=== PATIENT | male | born 1955 | race Caucasian/White ===

== ENCOUNTER 2017-01-26 17:44 | Emergency (ER) | payer MEDICARE ==
[2013-11-30 13:24] VITALS: BMI 32.5
[~2017-01-26 17:44] MED LIST: CYMBALTA60 MG PO; FLUTICASONE PRO16 GM NS; GLIPIZIDE10 MG PO; HUMALOG 30100 UNITS/ SC; NAPROSYN500 MG PO; NORCO 10/325 TA1 TA1 PO; PROTONIX40 MG PO; REVLIMID25 MG PO; ULTRAM50 MG PO; VENTOLIN HFA18 GM INH; XANAX0.5 MG PO; ZYLOPRIM100 MG PO
[2017-01-26 18:59] LABS: BASOPHILS 0.1 % (0.0-2.0); EOSINOPHILS 0.1 % (0-7); HEMATOCRIT 48.2 % (42.0-54.0); HEMOGLOBIN 17.2 g/dL (13.5-17.5); IMMATURE GRANULOCYTES 0.2 % (0-5); LYMPHOCYTES 7.1 % (15-50); MCH 33.7 pg (26.0-34.0); MCHC 35.7 g/dL (31.0-37.0); MCV 94.5 fL (80.0-100.0); MEAN PLATELET VOLUME 11.3 fL (7.4-10.4); MONOCYTES 15.8 % (2-11); NEUTROPHILS 76.7 % (40-80); RDW 13.8 % (11.5-14.5); WBC 10.2 10x3/uL (4.8-10.8)
[2017-01-26 19:03] LABS: PLATELET COUNT 167 10x3/uL (130-400)
[2017-01-26 19:17] LABS: ANION GAP 16.7 mmol/L (8-16); BILIRUBIN - TOTAL 0.38 mg/dL (0.2-1.3); CALCIUM 8.4 mg/dL (8.5-10.1); CARBON DIOXIDE 23.2 mmol/L (21.0-32.0); CREATININE - SERUM 2.6 mg/dL (0.6-1.3); POTASSIUM - SERUM 3.9 mmol/L (3.5-5.1); PROTEIN - SERUM 7.3 g/dL (6.4-8.2)
== END 2017-01-26 20:16 | disposition home or self-care (01) ==
LOC: D.ER 17:44
PROVIDERS: Emergency Medicine
DX: R11.10 Vomiting, unspecified (principal); E86.0 Dehydration; I12.9 Hypertensive chronic kidney disease with stage 1 through stage 4 chronic kidney disease, or unspecified chronic kidney disease; N18.9 Chronic kidney disease, unspecified; E11.65 Type 2 diabetes mellitus with hyperglycemia; Z79.4 Long term (current) use of insulin; C90.00 Multiple myeloma not having achieved remission

== ENCOUNTER 2018-08-23 11:08 | Observation (INO) | payer MEDICARE ==
[~2018-08-23] VITALS: Ht 185.4 cm; Wt 111.1 kg
--- NOTE | ~2018-08-23 | EC ---
PATIENT:ARLIN CUELLAR DATE OF SERVICE: 08/23/18 SEX: M MEDICAL RECORD: [id number] DATE OF : [birth year] LOCATION:D.M2 D.212 AGE OF PATIENT: 63 ADMISSION DATE: 08/23/18 REFERRING PHYSICIAN: INTERPRETING PHYSICIAN: CECILIA DEJESUS MD ECHOCARDIOGRAM REPORT ECHO CHARGES 4 ECHO COMPLETE Date: 08/24/18 CLINICAL DIAGNOSIS: DYSPNEA/CP ECHOCARDIOGRAPHIC MEASUREMENTS (adult normal given) AC root (d.<3.7cm) 3.5 cm LV Septum d (<1.2 cm> 1.1 cm Valve Excursion 2.2 cm LV Septum (systole) 1.7 cm Left Atria (s.<4.0cm> 3.9 cm LVPW d(<1.2cm) 1.2 cm RV (d.<2.3cm) 2.8 cm LVPW (sytole) 1.8 cm LV diastole(<5.6CM) 6.1 cm MV E-F(>70mm/sec) cm LV systole 3.7 cm LVOT Diameter 2.1 cm MV exc.(>10mm) cm Est.ejection fraction (50-75%) % DOPPLER: LVIT cm/sec A 94.0 cm/sec E 124 cm/sec LA cm/sec RVSP 33.0 mmHg LVOT 137 cm/sec AOP1/2T m/s Asc. Ao 196 cm/sec RVOT 82.0 cm/sec RA cm/sec PA 94.0 cm/sec AV Gradient Peak 15.4 mmHg AV Mean 5.6 mmHg AV Area 2.7 cm MV Gradient Peak 7.0 mmHg MV Mean 2.0 mmHg MV Area cm COMMENTS: Pattern Setter: 1 ROSA JONESOE Electrical Maintenance Worker: 3 Dr. Li TAPE# PACS Pericardial Effusion N DATE OF SERVICE: Adequate 2D echo, color flow, spectral Doppler and M-mode. No LVH. LV internal dimension is normal. Wall motion is normal. EF is greater than or equal to 55%. Aortic valve is tricuspid. No septation. Left atrium is normal at 3.7 cm. Mitral valve shows no prolapse. Trace MR. Right-sided chamber is grossly normal. Trace TR. TRANSINT:[id number] Voice Confirmation ID: [id number] DOCUMENT ID: [id number] ECHOCARDIOGRAM REPORT [id number] WHITE,ARLIN CITLALLI CECILIA DEJESUS MD at 2229 CC: [id number] DICTATION DATE: 08/24/18 1405 MANAGER OFFICE SERVICES: 08/24/18 1528 DIS IN 08/24/18 [id number] [place] [address]
[2018-08-23 12:13] LABS: BASOPHILS 0.2 % (0-2); EOSINOPHILS 1.9 % (0-7); HEMATOCRIT 39.8 % (42.0-54.0); HEMOGLOBIN 13.3 g/dL (13.5-17.5); IMMATURE GRANULOCYTES 0.6 % (0-5); LYMPHOCYTES 9.8 % (15-50); MCH 33.3 pg (26.0-34.0); MCHC 33.4 g/dL (31.0-37.0); MCV 99.5 fL (80.0-100.0); MEAN PLATELET VOLUME 11.3 fL (7.4-10.4); MONOCYTES 9.1 % (2-11); NEUTROPHILS 78.4 % (40-80); PLATELET COUNT 157 10x3/uL (130-400); RDW 14.4 % (11.5-14.5); WBC 4.7 10x3/uL (4.8-10.8)
[2018-08-23 12:26] LABS: APTT 22.2 SECONDS (22.8-39.4); INR 0.92 (0.85-1.17)
[2018-08-23 12:31] LABS: ALBUMIN 3.2 g/dL (3.4-5.0); ALKALINE PHOSPHATASE 66 U/L (46-116); ALT (SGPT) 24 U/L (10-68); CALC OSMOLALITY 282 mosm/kg (275-300); CALCIUM 8.2 mg/dL (8.5-10.1); CARBON DIOXIDE 27.5 mmol/L (21.0-32.0); CHLORIDE - SERUM 105 mmol/L (98-107); CREATININE - SERUM 1.5 mg/dL (0.6-1.3); POTASSIUM - SERUM 4.5 mmol/L (3.5-5.1); SODIUM 138 mmol/L (136-145); UREA NITROGEN 24 mg/dL (7-18); eGFR NON AFRICAN AMERICAN 51 mL/min (90-120)
[2018-08-23 12:33] LABS: GLUCOSE 159 mg/dL (74-106)
[2018-08-23 12:43] LABS: CREATINE KINASE 21 UL (21-232)
[2018-08-23 12:50] LABS: D-DIMER-QUANTITATIVE 0.43 ug/mLFEU (0.20-0.54)
[2018-08-23 14:22] LABS: TROPONIN-I 0.028 ng/mL (0.000-0.060)
[2018-08-23 14:42] LABS: CKMB 0.6 U/L (0.0-3.6); CREATINE KINASE 18 UL (21-232)
[2018-08-23 17:29] LABS: CHOL - HDL RATIO 3.2 ratio (2.3-4.9); LDL-HDL RATIO 1.8 ratio (1.5-3.5)
[2018-08-23 20:00] VITALS: BP 162/88
[2018-08-23 21:58] LABS: CKMB 0.5 U/L (0.0-3.6); CREATINE KINASE 20 UL (21-232); TROPONIN-I 0.024 ng/mL (0.000-0.060)
[2018-08-24] VITALS: BP 139/77
[2018-08-24] MEDS ORDERED: BAYER CHEWABLE81 MG PO (01:00)
[2018-08-24] MEDS ORDERED: LISINOPRIL10 MG PO (01:00)
[2018-08-24] MEDS ORDERED: ZOFRAN4 MG PO (01:01)
[2018-08-24] MEDS ORDERED: DILAUDID4 MG PO (01:01)
[2018-08-24 03:26] LABS: BASOPHILS 0.3 % (0-2); EOSINOPHILS 2.2 % (0-7); HEMATOCRIT 35.3 % (42.0-54.0); HEMOGLOBIN 11.8 g/dL (13.5-17.5); IMMATURE GRANULOCYTES 1.9 % (0-5); LYMPHOCYTES 23.3 % (15-50); MCHC 33.4 g/dL (31.0-37.0); MCV 98.6 fL (80.0-100.0); MEAN PLATELET VOLUME 11.5 fL (7.4-10.4); MONOCYTES 11.7 % (2-11); NEUTROPHILS 60.6 % (40-80); PLATELET COUNT 147 10x3/uL (130-400); RBC 3.58 10x6/uL (4.20-6.10); RDW 14.2 % (11.5-14.5); WBC 3.2 10x3/uL (4.8-10.8)
[2018-08-24 03:35] VITALS: BP 173/96; Ht 185.4 cm; Wt 111.1 kg
[2018-08-24 03:52] LABS: ALBUMIN 2.7 g/dL (3.4-5.0); ALKALINE PHOSPHATASE 66 U/L (46-116); ALT (SGPT) 22 U/L (10-68); BILIRUBIN - TOTAL 0.26 mg/dL (0.2-1.3); CALCIUM 7.7 mg/dL (8.5-10.1); CARBON DIOXIDE 27.2 mmol/L (21.0-32.0); CHLORIDE - SERUM 105 mmol/L (98-107); CKMB 0.5 U/L (0.0-3.6); CREATINE KINASE 22 UL (21-232); CREATININE - SERUM 1.3 mg/dL (0.6-1.3); MAGNESIUM - SERUM 1.5 mg/dL (1.8-2.4); PROTEIN - SERUM 5.2 g/dL (6.4-8.2); SODIUM 136 mmol/L (136-145); TROPONIN-I < 0.017 ng/mL (0.000-0.060); UREA NITROGEN 22 mg/dL (7-18); eGFR NON AFRICAN AMERICAN 60 mL/min (90-120)
[2018-08-24 03:54] LABS: CALC OSMOLALITY 275 mosm/kg (275-300); GLUCOSE 111 mg/dL (74-106); POTASSIUM - SERUM 3.3 mmol/L (3.5-5.1)
[2018-08-24 06:37] VITALS: BP 149/89
[2018-08-24 09:39] VITALS: BP 166/98
[2018-08-24 12:34] VITALS: BP 164/95
[2018-08-24] MEDS ORDERED: BUPROPION HCL150 M1 PO (13:43)
== END 2018-08-24 16:25 | disposition home or self-care (01) ==
LOC: D.ER 11:08 → D.M2 13:57 → OBSVTIME 13:57 → D.M2 13:57 → D.EDHOLD 13:57 → D.M2 18:19
PROVIDERS: Family Medicine; Internal Medicine Interventional Cardiology
DX: R07.9 Chest pain, unspecified (principal); I25.10 Atherosclerotic heart disease of native coronary artery without angina pectoris; F17.213 Nicotine dependence, cigarettes, with withdrawal; Z85.79 Personal history of other malignant neoplasms of lymphoid, hematopoietic and related tissues; I12.9 Hypertensive chronic kidney disease with stage 1 through stage 4 chronic kidney disease, or unspecified chronic kidney disease; N18.9 Chronic kidney disease, unspecified

== ENCOUNTER → 2019-08-02 19:12 | Outpatient (CLI) | payer MEDICARE ==
[2018-08-24 03:35] VITALS: BMI 31.8
[~2019-08-02 19:12] MED LIST changes: +BAYER CHEWABLE81 MG PO; +BUPROPION HCL150 M1 PO; +DILAUDID4 MG PO; +LISINOPRIL10 MG PO; +ZOFRAN4 MG PO
[2019-08-02 19:51] LABS: CREATININE - SERUM 1.1 mg/dL (0.6-1.3); VANCOMYCIN - TROUGH 26.3 ug/mL (10.0-20.0)
== END | disposition home or self-care (01) ==
LOC: D.LABREF 19:12
DX: C90.01 Multiple myeloma in remission (principal)

== ENCOUNTER → 2019-08-04 16:28 | Outpatient (CLI) | payer MEDICARE ==
[2018-08-24 03:35] VITALS: BMI 31.8
== END | disposition home or self-care (01) ==
LOC: D.LABREF 16:28
DX: C90.01 Multiple myeloma in remission (principal); E11.40 Type 2 diabetes mellitus with diabetic neuropathy, unspecified; I12.9 Hypertensive chronic kidney disease with stage 1 through stage 4 chronic kidney disease, or unspecified chronic kidney disease

== ENCOUNTER → 2019-08-07 18:43 | Outpatient (CLI) | payer MEDICARE ==
[2018-08-24 03:35] VITALS: BMI 31.8
[2019-08-07 19:05] LABS: BASOPHILS 0.2 % (0-2); EOSINOPHILS 1.2 % (0-7); HEMATOCRIT 21.2 % (42.0-54.0); IMMATURE GRANULOCYTES 0.5 % (0-5); LYMPHOCYTES 17.3 % (15-50); MCH 31.5 pg (26.0-34.0); MCHC 34.4 g/dL (31.0-37.0); MCV 91.4 fL (80.0-100.0); MEAN PLATELET VOLUME 11.6 fL (7.4-10.4); MONOCYTES 16.9 % (2-11); NEUTROPHILS 63.9 % (40-80); RBC 2.32 10x6/uL (4.20-6.10); RDW 15.5 % (11.5-14.5); WBC 4.2 10x3/uL (4.8-10.8)
[2019-08-07 19:21] LABS: ANION GAP 12.7 mmol/L (8-16); BILIRUBIN - DIRECT 0.05 mg/dL (0.00-0.30); BILIRUBIN - INDIRECT 0.26 mg/dL (0.00-1.00); BILIRUBIN - TOTAL 0.31 mg/dL (0.2-1.3); CALCIUM 7.8 mg/dL (8.5-10.1); CREATININE - SERUM 1.1 mg/dL (0.6-1.3); PROTEIN - SERUM 5.2 g/dL (6.4-8.2); VANCOMYCIN - TROUGH 18.2 ug/mL (10.0-20.0)
[2019-08-07 19:35] LABS: POTASSIUM - SERUM 2.7 mmol/L (3.5-5.1)
[2019-08-07 20:13] LABS: HEMOGLOBIN 7.3 g/dL (13.5-17.5); PLATELET COUNT 56 10x3/uL (130-400)
== END | disposition home or self-care (01) ==
LOC: D.LABREF 18:43
PROVIDERS: ATTEND Internal Medicine Gastroenterology
DX: C90.01 Multiple myeloma in remission (principal)

== ENCOUNTER → 2019-08-08 17:19 | Outpatient (CLI) | payer MEDICARE ==
[2018-08-24 03:35] VITALS: BMI 31.8
== END | disposition home or self-care (01) ==
LOC: D.LABREF 17:19
DX: C90.01 Multiple myeloma in remission (principal); I12.9 Hypertensive chronic kidney disease with stage 1 through stage 4 chronic kidney disease, or unspecified chronic kidney disease; M62.81 Muscle weakness (generalized)

== ENCOUNTER → 2019-08-14 13:09 | Outpatient (CLI) | payer MEDICARE ==
[2018-08-24 03:35] VITALS: BMI 31.8
== END | disposition home or self-care (01) ==
LOC: D.LABREF 13:09
DX: C90.01 Multiple myeloma in remission (principal)

== ENCOUNTER → 2019-08-21 16:58 | Outpatient (CLI) | payer MEDICARE ==
[2018-08-24 03:35] VITALS: BMI 31.8
[2019-08-21 18:05] LABS: HEMATOCRIT 52.8 % (42.0-54.0); HEMOGLOBIN 17.4 g/dL (13.5-17.5); MCH 32.1 pg (26.0-34.0); MCV 97.4 fL (80.0-100.0); PLATELET COUNT 50 10x3/uL (130-400); RBC 5.42 10x6/uL (4.20-6.10); RDW 18.2 % (11.5-14.5)
[2019-08-21 18:06] LABS: MEAN PLATELET VOLUME 11.6 fL (7.4-10.4)
[2019-08-21 18:11] LABS: ANION GAP 11.5 mmol/L (8-16); CALCIUM 8.6 mg/dL (8.5-10.1); CARBON DIOXIDE 28.8 mmol/L (21.0-32.0); CREATININE - SERUM 1.3 mg/dL (0.6-1.3); MAGNESIUM - SERUM 1.4 mg/dL (1.8-2.4); PHOSPHOROUS 4.1 mg/dL (2.5-4.9); POTASSIUM - SERUM 4.3 mmol/L (3.5-5.1)
[2019-08-21 18:33] LABS: EOSINOPHILS 4 % (0-7); LYMPHOCYTES 22 % (15-50); MONOCYTES 2 % (2-11); NEUTROPHILS 72 % (40-80); PLATELET ESTIMATE DECREASED
== END | disposition home or self-care (01) ==
LOC: D.LABREF 16:58
DX: C90.01 Multiple myeloma in remission (principal)

== ENCOUNTER → 2019-08-28 14:46 | Outpatient (CLI) | payer MEDICARE ==
[2018-08-24 03:35] VITALS: BMI 31.8
[2019-08-28 15:12] LABS: BASOPHILS 0.2 % (0-2); EOSINOPHILS 2.6 % (0-7); HEMATOCRIT 29.2 % (42.0-54.0); HEMOGLOBIN 9.5 g/dL (13.5-17.5); IMMATURE GRANULOCYTES 1.1 % (0-5); LYMPHOCYTES 23.5 % (15-50); MCH 32.1 pg (26.0-34.0); MCHC 32.5 g/dL (31.0-37.0); MCV 98.6 fL (80.0-100.0); MEAN PLATELET VOLUME 10.3 fL (7.4-10.4); MONOCYTES 11.3 % (2-11); NEUTROPHILS 61.3 % (40-80); RBC 2.96 10x6/uL (4.20-6.10); RDW 17.3 % (11.5-14.5); WBC 4.6 10x3/uL (4.8-10.8)
[2019-08-28 15:33] LABS: ALBUMIN 2.9 g/dL (3.4-5.0); ALKALINE PHOSPHATASE 72 U/L (46-116); ALT (SGPT) 13 U/L (10-68); BILIRUBIN - TOTAL 0.23 mg/dL (0.2-1.3); CALC OSMOLALITY 282 mosm/kg (275-300); CALCIUM 8.2 mg/dL (8.5-10.1); CARBON DIOXIDE 25.7 mmol/L (21.0-32.0); CHLORIDE - SERUM 104 mmol/L (98-107); GLUCOSE 180 mg/dL (74-106); MAGNESIUM - SERUM 1.6 mg/dL (1.8-2.4); PROTEIN - SERUM 5.3 g/dL (6.4-8.2); SODIUM 138 mmol/L (136-145); UREA NITROGEN 18 mg/dL (7-18); eGFR NON AFRICAN AMERICAN 80 mL/min (90-120)
[2019-08-28 16:04] LABS: PLATELET COUNT 194 10x3/uL (130-400)
== END | disposition home or self-care (01) ==
LOC: D.LABREF 14:46
PROVIDERS: ATTEND Internal Medicine Hematology & Oncology
DX: C90.01 Multiple myeloma in remission (principal)

== ENCOUNTER → 2019-09-11 21:34 | Outpatient (CLI) | payer MEDICARE ==
[2018-08-24 03:35] VITALS: BMI 31.8
[2019-09-11 22:37] LABS: ALBUMIN 3.1 g/dL (3.4-5.0); ALKALINE PHOSPHATASE 61 U/L (46-116); ALT (SGPT) 10 U/L (10-68); BILIRUBIN - TOTAL 0.19 mg/dL (0.2-1.3); CALC OSMOLALITY 280 mosm/kg (275-300); CALCIUM 8.2 mg/dL (8.5-10.1); CARBON DIOXIDE 24.5 mmol/L (21.0-32.0); CHLORIDE - SERUM 104 mmol/L (98-107); GLUCOSE 161 mg/dL (74-106); MAGNESIUM - SERUM 1.5 mg/dL (1.8-2.4); PHOSPHOROUS 3.3 mg/dL (2.5-4.9); POTASSIUM - SERUM 4.2 mmol/L (3.5-5.1); SODIUM 138 mmol/L (136-145); UREA NITROGEN 18 mg/dL (7-18); eGFR NON AFRICAN AMERICAN 80 mL/min (90-120)
[2019-09-11 22:43] LABS: BASOPHILS 0 % (0-2); EOSINOPHILS 0.4 % (0-7); HEMATOCRIT 28.8 % (42.0-54.0); HEMOGLOBIN 9.5 g/dL (13.5-17.5); IMMATURE GRANULOCYTES 0.2 % (0-5); LYMPHOCYTES 9.7 % (15-50); MCH 33.2 pg (26.0-34.0); MCV 100.7 fL (80.0-100.0); MEAN PLATELET VOLUME 10.3 fL (7.4-10.4); MONOCYTES 9.3 % (2-11); NEUTROPHILS 80.4 % (40-80); PLATELET COUNT 159 10x3/uL (130-400); RBC 2.86 10x6/uL (4.20-6.10); RDW 17.4 % (11.5-14.5); WBC 5.6 10x3/uL (4.8-10.8)
[2019-09-13 18:08] LABS: IMMUNOFIXATION Note: (()); IMMUNOGLOBULIN A 9 mg/dL (61-437); IMMUNOGLOBULIN G 249 mg/dL (700-1600); IMMUNOGLOBULIN M 27 mg/dL (20-172)
[2019-09-14 07:13] LABS: BETA-2 MICROGLOBULIN 2.2 mg/L (0.6-2.4)
[2019-09-14 08:11] LABS: SPE - A/G RATIO 1.5 (0.7-1.7); SPE - ALPHA-1 GLOBULIN 0.2 g/dL (0.0-0.4); SPE - ALPHA-2 GLOBULIN 0.9 g/dL (0.4-1.0); SPE - BETA GLOBULIN 0.7 g/dL (0.7-1.3); SPE - GAMMA GLOBULIN 0.2 g/dL (0.4-1.8); SPE - M-SPIKE Not Observed g/dL (Not Observed)
== END | disposition home or self-care (01) ==
LOC: D.LABREF 21:34
PROVIDERS: ATTEND Internal Medicine Hematology & Oncology
DX: C90.01 Multiple myeloma in remission (principal)

== ENCOUNTER → 2019-09-12 17:30 | Outpatient (CLI) | payer MEDICARE ==
[2018-08-24 03:35] VITALS: BMI 31.8
== END | disposition home or self-care (01) ==
LOC: D.LABREF 17:30
PROVIDERS: ATTEND Internal Medicine Infectious Disease
DX: C90.01 Multiple myeloma in remission (principal)

== ENCOUNTER → 2019-09-18 17:56 | Outpatient (CLI) | payer MEDICARE ==
[2018-08-24 03:35] VITALS: BMI 31.8
[2019-09-18 18:37] LABS: BASOPHILS 0 % (0-2); EOSINOPHILS 0.6 % (0-7); HEMATOCRIT 28.4 % (42.0-54.0); HEMOGLOBIN 9.2 g/dL (13.5-17.5); IMMATURE GRANULOCYTES 0.3 % (0-5); MCH 32.5 pg (26.0-34.0); MCHC 32.4 g/dL (31.0-37.0); MCV 100.4 fL (80.0-100.0); MONOCYTES 13.9 % (2-11); NEUTROPHILS 59.2 % (40-80); PLATELET COUNT 151 10x3/uL (130-400); RBC 2.83 10x6/uL (4.20-6.10); RDW 17.1 % (11.5-14.5); WBC 3.4 10x3/uL (4.8-10.8)
[2019-09-18 19:43] LABS: ANION GAP 9.8 mmol/L (8-16); BILIRUBIN - TOTAL 0.18 mg/dL (0.2-1.3); CARBON DIOXIDE 30.3 mmol/L (21.0-32.0); CREATININE - SERUM 1.4 mg/dL (0.6-1.3); MAGNESIUM - SERUM 1.5 mg/dL (1.8-2.4); PHOSPHOROUS 4.1 mg/dL (2.5-4.9); POTASSIUM - SERUM 4.1 mmol/L (3.5-5.1); PROTEIN - SERUM 5.2 g/dL (6.4-8.2); VANCOMYCIN - TROUGH 20.2 ug/mL (10.0-20.0)
[2019-09-20 17:08] LABS: SPE - A/G RATIO 1.6 (0.7-1.7); SPE - ALBUMIN 3.1 g/dL (2.9-4.4); SPE - ALPHA-1 GLOBULIN 0.2 g/dL (0.0-0.4); SPE - ALPHA-2 GLOBULIN 0.8 g/dL (0.4-1.0); SPE - BETA GLOBULIN 0.6 g/dL (0.7-1.3); SPE - GAMMA GLOBULIN 0.2 g/dL (0.4-1.8); SPE - M-SPIKE Not Observed g/dL (Not Observed)
[2019-09-21 07:14] LABS: BETA-2 MICROGLOBULIN 2.2 mg/L (0.6-2.4)
== END | disposition home or self-care (01) ==
LOC: D.LABREF 17:56
PROVIDERS: ATTEND Internal Medicine Infectious Disease
DX: C90.01 Multiple myeloma in remission (principal); I12.9 Hypertensive chronic kidney disease with stage 1 through stage 4 chronic kidney disease, or unspecified chronic kidney disease

== ENCOUNTER → 2019-09-25 13:52 | Outpatient (CLI) | payer MEDICARE ==
[2018-08-24 03:35] VITALS: BMI 31.8
[2019-09-25 15:39] LABS: BASOPHILS 0 % (0-2); EOSINOPHILS 0.3 % (0-7); HEMATOCRIT 26.7 % (42.0-54.0); HEMOGLOBIN 8.8 g/dL (13.5-17.5); IMMATURE GRANULOCYTES 0.3 % (0-5); LYMPHOCYTES 23.1 % (15-50); MCH 33.1 pg (26.0-34.0); MCV 100.4 fL (80.0-100.0); MEAN PLATELET VOLUME 10.7 fL (7.4-10.4); MONOCYTES 12.3 % (2-11); RBC 2.66 10x6/uL (4.20-6.10); WBC 3.3 10x3/uL (4.8-10.8)
[2019-09-25 15:41] LABS: PLATELET COUNT 101 10x3/uL (130-400)
[2019-09-25 15:56] LABS: ALKALINE PHOSPHATASE 56 U/L (46-116); ALT (SGPT) 13 U/L (10-68); BILIRUBIN - TOTAL 0.23 mg/dL (0.2-1.3); CALC OSMOLALITY 276 mosm/kg (275-300); CARBON DIOXIDE 25.5 mmol/L (21.0-32.0); CHLORIDE - SERUM 107 mmol/L (98-107); CREATININE - SERUM 0.9 mg/dL (0.6-1.3); GLUCOSE 92 mg/dL (74-106); MAGNESIUM - SERUM 1.5 mg/dL (1.8-2.4); PROTEIN - SERUM 5.1 g/dL (6.4-8.2); SODIUM 140 mmol/L (136-145); UREA NITROGEN 8 mg/dL (7-18); eGFR NON AFRICAN AMERICAN > 90 mL/min (90-120)
[2019-09-26 17:08] LABS: IMMUNOFIXATION Note: (()); IMMUNOGLOBULIN A 10 mg/dL (61-437); IMMUNOGLOBULIN G 231 mg/dL (700-1600); IMMUNOGLOBULIN M 17 mg/dL (20-172)
[2019-09-26 19:08] LABS: SPE - A/G RATIO 1.6 (0.7-1.7); SPE - ALBUMIN 2.1 g/dL (2.9-4.4); SPE - ALPHA-1 GLOBULIN 0.1 g/dL (0.0-0.4); SPE - ALPHA-2 GLOBULIN 0.4 g/dL (0.4-1.0); SPE - BETA GLOBULIN 0.5 g/dL (0.7-1.3); SPE - GAMMA GLOBULIN 0.1 g/dL (0.4-1.8); SPE - M-SPIKE Not Observed g/dL (Not Observed); SPE - TOTAL PROTEIN 3.4 g/dL (6.0-8.5)
[2019-09-28 09:13] LABS: IMMUNOGLOBULIN E 6 IU/mL (6-495)
[2019-09-29 06:09] LABS: BETA-2 MICROGLOBULIN 2.3 mg/L (0.6-2.4)
== END | disposition home or self-care (01) ==
LOC: D.LABREF 13:52
PROVIDERS: ATTEND Internal Medicine Infectious Disease
DX: C90.01 Multiple myeloma in remission (principal)

== ENCOUNTER → 2019-10-02 13:56 | Outpatient (CLI) | payer MEDICARE ==
[2018-08-24 03:35] VITALS: BMI 31.8
[2019-10-02 16:30] LABS: ALBUMIN 3.1 g/dL (3.4-5.0); ALKALINE PHOSPHATASE 60 U/L (46-116); ALT (SGPT) 17 U/L (10-68); BILIRUBIN - TOTAL 0.23 mg/dL (0.2-1.3); CALC OSMOLALITY 285 mosm/kg (275-300); CALCIUM 8.4 mg/dL (8.5-10.1); CARBON DIOXIDE 25.8 mmol/L (21.0-32.0); CHLORIDE - SERUM 109 mmol/L (98-107); GLUCOSE 89 mg/dL (74-106); MAGNESIUM - SERUM 1.5 mg/dL (1.8-2.4); PHOSPHOROUS 3.1 mg/dL (2.5-4.9); POTASSIUM - SERUM 3.5 mmol/L (3.5-5.1); PROTEIN - SERUM 5.4 g/dL (6.4-8.2); SODIUM 145 mmol/L (136-145); UREA NITROGEN 8 mg/dL (7-18); eGFR NON AFRICAN AMERICAN 80 mL/min (90-120)
[2019-10-02 16:55] LABS: BASOPHILS 0.3 % (0-2); EOSINOPHILS 1.4 % (0-7); HEMATOCRIT 27.9 % (42.0-54.0); IMMATURE GRANULOCYTES 0.3 % (0-5); LYMPHOCYTES 23.6 % (15-50); MCH 32.8 pg (26.0-34.0); MCHC 32.3 g/dL (31.0-37.0); MCV 101.8 fL (80.0-100.0); MEAN PLATELET VOLUME 10.5 fL (7.4-10.4); MONOCYTES 17.5 % (2-11); NEUTROPHILS 56.9 % (40-80); PLATELET COUNT 102 10x3/uL (130-400); RBC 2.74 10x6/uL (4.20-6.10); RDW 16.7 % (11.5-14.5); WBC 3.5 10x3/uL (4.8-10.8)
== END | disposition home or self-care (01) ==
LOC: D.LABREF 13:56
PROVIDERS: ATTEND Internal Medicine Infectious Disease
DX: C90.00 Multiple myeloma not having achieved remission (principal)

== ENCOUNTER → 2019-10-09 11:14 | Outpatient (CLI) | payer MEDICARE ==
[2018-08-24 03:35] VITALS: BMI 31.8
[2019-10-09 11:31] LABS: BASOPHILS 0 % (0-2); EOSINOPHILS 2.4 % (0-7); HEMATOCRIT 29.9 % (42.0-54.0); HEMOGLOBIN 9.8 g/dL (13.5-17.5); IMMATURE GRANULOCYTES 0.6 % (0-5); LYMPHOCYTES 30.9 % (15-50); MCH 33.6 pg (26.0-34.0); MCHC 32.8 g/dL (31.0-37.0); MCV 102.4 fL (80.0-100.0); MEAN PLATELET VOLUME 10.6 fL (7.4-10.4); MONOCYTES 14.8 % (2-11); NEUTROPHILS 51.3 % (40-80); PLATELET COUNT 116 10x3/uL (130-400); RBC 2.92 10x6/uL (4.20-6.10); RDW 16.5 % (11.5-14.5); WBC 3.4 10x3/uL (4.8-10.8)
[2019-10-09 11:49] LABS: ALBUMIN 3.3 g/dL (3.4-5.0); ALKALINE PHOSPHATASE 55 U/L (46-116); ALT (SGPT) 18 U/L (10-68); BILIRUBIN - TOTAL 0.18 mg/dL (0.2-1.3); CALC OSMOLALITY 290 mosm/kg (275-300); CALCIUM 8.4 mg/dL (8.5-10.1); CHLORIDE - SERUM 108 mmol/L (98-107); MAGNESIUM - SERUM 1.6 mg/dL (1.8-2.4); POTASSIUM - SERUM 3.9 mmol/L (3.5-5.1); PROTEIN - SERUM 5.2 g/dL (6.4-8.2); SODIUM 144 mmol/L (136-145); UREA NITROGEN 14 mg/dL (7-18); eGFR NON AFRICAN AMERICAN 80 mL/min (90-120)
[2019-10-09 11:50] LABS: GLUCOSE 146 mg/dL (74-106)
[2019-10-10 13:10] LABS: IMMUNOFIXATION Note: (()); IMMUNOGLOBULIN A 10 mg/dL (61-437); IMMUNOGLOBULIN G 239 mg/dL (700-1600); IMMUNOGLOBULIN M 13 mg/dL (20-172); SPE - A/G RATIO 1.7 (0.7-1.7); SPE - ALBUMIN 3.2 g/dL (2.9-4.4); SPE - ALPHA-1 GLOBULIN 0.2 g/dL (0.0-0.4); SPE - ALPHA-2 GLOBULIN 0.7 g/dL (0.4-1.0); SPE - BETA GLOBULIN 0.8 g/dL (0.7-1.3); SPE - GAMMA GLOBULIN 0.2 g/dL (0.4-1.8); SPE - M-SPIKE Not Observed g/dL (Not Observed); SPE - TOTAL PROTEIN 5.1 g/dL (6.0-8.5)
[2019-10-11 06:09] LABS: BETA-2 MICROGLOBULIN 2.2 mg/L (0.6-2.4)
[2019-10-14 03:07] LABS: IMMUNOGLOBULIN E 12 IU/mL (6-495)
== END | disposition home or self-care (01) ==
LOC: D.LABREF 11:14
PROVIDERS: ATTEND Internal Medicine Infectious Disease
DX: C90.00 Multiple myeloma not having achieved remission (principal)

== ENCOUNTER → 2019-10-16 18:36 | Outpatient (CLI) | payer MEDICARE ==
[2018-08-24 03:35] VITALS: BMI 31.8
[2019-10-16 18:50] LABS: BASOPHILS 0 % (0-2); EOSINOPHILS 0.9 % (0-7); HEMATOCRIT 30.6 % (42.0-54.0); IMMATURE GRANULOCYTES 0.5 % (0-5); LYMPHOCYTES 22.8 % (15-50); MCH 33.8 pg (26.0-34.0); MCHC 32.7 g/dL (31.0-37.0); MCV 103.4 fL (80.0-100.0); MEAN PLATELET VOLUME 10.8 fL (7.4-10.4); MONOCYTES 9.9 % (2-11); NEUTROPHILS 65.9 % (40-80); PLATELET COUNT 117 10x3/uL (130-400); RBC 2.96 10x6/uL (4.20-6.10); RDW 15.8 % (11.5-14.5); WBC 4.3 10x3/uL (4.8-10.8)
[2019-10-16 19:05] LABS: ALBUMIN 3.2 g/dL (3.4-5.0); ANION GAP 14.2 mmol/L (8-16); BILIRUBIN - TOTAL 0.25 mg/dL (0.2-1.3); CALCIUM 8.4 mg/dL (8.5-10.1); CARBON DIOXIDE 25.5 mmol/L (21.0-32.0); CREATININE - SERUM 1.1 mg/dL (0.6-1.3); MAGNESIUM - SERUM 1.4 mg/dL (1.8-2.4); POTASSIUM - SERUM 3.7 mmol/L (3.5-5.1); PROTEIN - SERUM 5.4 g/dL (6.4-8.2)
== END | disposition home or self-care (01) ==
LOC: D.LABREF 18:36
PROVIDERS: ATTEND Internal Medicine Hematology & Oncology
DX: C90.00 Multiple myeloma not having achieved remission (principal)

== ENCOUNTER → 2019-10-23 11:42 | Outpatient (CLI) | payer MEDICARE ==
[2018-08-24 03:35] VITALS: BMI 31.8
[2019-10-23 12:10] LABS: BASOPHILS 0 % (0-2); EOSINOPHILS 0.7 % (0-7); HEMATOCRIT 28.2 % (42.0-54.0); HEMOGLOBIN 9.2 g/dL (13.5-17.5); IMMATURE GRANULOCYTES 0.2 % (0-5); LYMPHOCYTES 20.5 % (15-50); MCH 33.7 pg (26.0-34.0); MCHC 32.6 g/dL (31.0-37.0); MCV 103.3 fL (80.0-100.0); MEAN PLATELET VOLUME 10.6 fL (7.4-10.4); MONOCYTES 9.4 % (2-11); NEUTROPHILS 69.2 % (40-80); PLATELET COUNT 99 10x3/uL (130-400); RBC 2.73 10x6/uL (4.20-6.10); RDW 15.4 % (11.5-14.5); WBC 4.1 10x3/uL (4.8-10.8)
[2019-10-23 12:16] LABS: ALBUMIN 2.9 g/dL (3.4-5.0); ALKALINE PHOSPHATASE 56 U/L (46-116); ALT (SGPT) 18 U/L (10-68); BILIRUBIN - TOTAL 0.18 mg/dL (0.2-1.3); CALC OSMOLALITY 277 mosm/kg (275-300); CALCIUM 7.8 mg/dL (8.5-10.1); CARBON DIOXIDE 26.1 mmol/L (21.0-32.0); CHLORIDE - SERUM 109 mmol/L (98-107); MAGNESIUM - SERUM 1.6 mg/dL (1.8-2.4); POTASSIUM - SERUM 4.1 mmol/L (3.5-5.1); PROTEIN - SERUM 4.8 g/dL (6.4-8.2); SODIUM 140 mmol/L (136-145); UREA NITROGEN 11 mg/dL (7-18); eGFR NON AFRICAN AMERICAN 80 mL/min (90-120)
[2019-10-23 12:17] LABS: GLUCOSE 95 mg/dL (74-106)
[2019-10-24 13:09] LABS: IMMUNOFIXATION Note: (()); IMMUNOGLOBULIN A 6 mg/dL (61-437); IMMUNOGLOBULIN G 216 mg/dL (700-1600); IMMUNOGLOBULIN M 13 mg/dL (20-172); SPE - A/G RATIO 1.7 (0.7-1.7); SPE - ALBUMIN 2.9 g/dL (2.9-4.4); SPE - ALPHA-1 GLOBULIN 0.2 g/dL (0.0-0.4); SPE - ALPHA-2 GLOBULIN 0.6 g/dL (0.4-1.0); SPE - BETA GLOBULIN 0.7 g/dL (0.7-1.3); SPE - GAMMA GLOBULIN 0.2 g/dL (0.4-1.8); SPE - M-SPIKE Not Observed g/dL (Not Observed); SPE - TOTAL PROTEIN 4.6 g/dL (6.0-8.5)
[2019-10-25 05:09] LABS: BETA-2 MICROGLOBULIN 2.1 mg/L (0.6-2.4)
[2019-10-25 20:07] LABS: IMMUNOGLOBULIN E 9 IU/mL (6-495)
== END | disposition home or self-care (01) ==
LOC: D.LABREF 11:42
PROVIDERS: ATTEND Internal Medicine Hematology & Oncology
DX: C90.00 Multiple myeloma not having achieved remission (principal)

== ENCOUNTER → 2019-10-30 11:54 | Outpatient (CLI) | payer MEDICARE ==
[2018-08-24 03:35] VITALS: BMI 31.8
[2019-10-30 12:13] LABS: BASOPHILS 0 % (0-2); EOSINOPHILS 0.6 % (0-7); HEMATOCRIT 30.4 % (42.0-54.0); HEMOGLOBIN 10.3 g/dL (13.5-17.5); IMMATURE GRANULOCYTES 0.3 % (0-5); LYMPHOCYTES 29.8 % (15-50); MCH 34.2 pg (26.0-34.0); MCHC 33.9 g/dL (31.0-37.0); MEAN PLATELET VOLUME 10.8 fL (7.4-10.4); MONOCYTES 14.9 % (2-11); NEUTROPHILS 54.4 % (40-80); PLATELET COUNT 118 10x3/uL (130-400); RBC 3.01 10x6/uL (4.20-6.10); WBC 3.4 10x3/uL (4.8-10.8)
[2019-10-30 12:31] LABS: ALBUMIN 3.2 g/dL (3.4-5.0); ALKALINE PHOSPHATASE 55 U/L (46-116); ALT (SGPT) 18 U/L (10-68); BILIRUBIN - TOTAL 0.16 mg/dL (0.2-1.3); CALC OSMOLALITY 279 mosm/kg (275-300); CALCIUM 8.5 mg/dL (8.5-10.1); CARBON DIOXIDE 26.2 mmol/L (21.0-32.0); CHLORIDE - SERUM 106 mmol/L (98-107); GLUCOSE 113 mg/dL (74-106); MAGNESIUM - SERUM 1.6 mg/dL (1.8-2.4); POTASSIUM - SERUM 4.1 mmol/L (3.5-5.1); PROTEIN - SERUM 5.4 g/dL (6.4-8.2); SODIUM 139 mmol/L (136-145); UREA NITROGEN 14 mg/dL (7-18); eGFR NON AFRICAN AMERICAN 80 mL/min (90-120)
== END | disposition home or self-care (01) ==
LOC: D.LABREF 11:54
PROVIDERS: ATTEND Internal Medicine Hematology & Oncology
DX: C90.00 Multiple myeloma not having achieved remission (principal)

== ENCOUNTER → 2019-11-06 12:21 | Outpatient (CLI) | payer MEDICARE ==
[2018-08-24 03:35] VITALS: BMI 31.8
[2019-11-06 12:36] LABS: BASOPHILS 0.3 % (0-2); EOSINOPHILS 0.5 % (0-7); HEMATOCRIT 29.9 % (42.0-54.0); HEMOGLOBIN 10.1 g/dL (13.5-17.5); IMMATURE GRANULOCYTES 0.5 % (0-5); LYMPHOCYTES 23.3 % (15-50); MCH 34.6 pg (26.0-34.0); MCHC 33.8 g/dL (31.0-37.0); MCV 102.4 fL (80.0-100.0); MEAN PLATELET VOLUME 10.6 fL (7.4-10.4); MONOCYTES 12.2 % (2-11); NEUTROPHILS 63.2 % (40-80); PLATELET COUNT 111 10x3/uL (130-400); RBC 2.92 10x6/uL (4.20-6.10); WBC 3.7 10x3/uL (4.8-10.8)
[2019-11-06 12:45] LABS: ALBUMIN 3.1 g/dL (3.4-5.0); ALKALINE PHOSPHATASE 53 U/L (46-116); ALT (SGPT) 16 U/L (10-68); BILIRUBIN - TOTAL 0.21 mg/dL (0.2-1.3); CALC OSMOLALITY 279 mosm/kg (275-300); CALCIUM 8.3 mg/dL (8.5-10.1); CARBON DIOXIDE 23.8 mmol/L (21.0-32.0); CHLORIDE - SERUM 107 mmol/L (98-107); CREATININE - SERUM 0.9 mg/dL (0.6-1.3); GLUCOSE 123 mg/dL (74-106); MAGNESIUM - SERUM 1.5 mg/dL (1.8-2.4); POTASSIUM - SERUM 4.1 mmol/L (3.5-5.1); PROTEIN - SERUM 5.2 g/dL (6.4-8.2); SODIUM 139 mmol/L (136-145); UREA NITROGEN 16 mg/dL (7-18); eGFR NON AFRICAN AMERICAN > 90 mL/min (90-120)
[2019-11-07 15:10] LABS: IMMUNOGLOBULIN A 9 mg/dL (61-437); IMMUNOGLOBULIN G 243 mg/dL (700-1600); IMMUNOGLOBULIN M 14 mg/dL (20-172)
[2019-11-08 06:09] LABS: BETA-2 MICROGLOBULIN 1.9 mg/L (0.6-2.4)
[2019-11-08 20:07] LABS: SPE - A/G RATIO 1.7 (0.7-1.7); SPE - ALBUMIN 3.2 g/dL (2.9-4.4); SPE - ALPHA-1 GLOBULIN 0.2 g/dL (0.0-0.4); SPE - ALPHA-2 GLOBULIN 0.9 g/dL (0.4-1.0); SPE - BETA GLOBULIN 0.7 g/dL (0.7-1.3); SPE - GAMMA GLOBULIN 0.2 g/dL (0.4-1.8); SPE - M-SPIKE Not Observed g/dL (Not Observed); SPE - TOTAL PROTEIN 5.1 g/dL (6.0-8.5)
[2019-11-09 03:07] LABS: IMMUNOGLOBULIN E 8 IU/mL (6-495)
== END | disposition home or self-care (01) ==
LOC: D.LABREF 12:21
PROVIDERS: ATTEND Internal Medicine Hematology & Oncology
DX: C90.00 Multiple myeloma not having achieved remission (principal)

== ENCOUNTER → 2019-11-13 12:05 | Outpatient (CLI) | payer MEDICARE ==
[2018-08-24 03:35] VITALS: BMI 31.8
[2019-11-13 12:35] LABS: BASOPHILS 0.3 % (0-2); EOSINOPHILS 0.8 % (0-7); HEMATOCRIT 29.7 % (42.0-54.0); HEMOGLOBIN 10.1 g/dL (13.5-17.5); IMMATURE GRANULOCYTES 0.5 % (0-5); LYMPHOCYTES 20.4 % (15-50); MCH 34.4 pg (26.0-34.0); MEAN PLATELET VOLUME 10.1 fL (7.4-10.4); MONOCYTES 12.1 % (2-11); NEUTROPHILS 65.9 % (40-80); PLATELET COUNT 105 10x3/uL (130-400); RBC 2.94 10x6/uL (4.20-6.10); RDW 14.6 % (11.5-14.5); WBC 3.7 10x3/uL (4.8-10.8)
[2019-11-13 12:59] LABS: ALBUMIN 3.2 g/dL (3.4-5.0); ALKALINE PHOSPHATASE 51 U/L (46-116); ALT (SGPT) 16 U/L (10-68); BILIRUBIN - TOTAL 0.18 mg/dL (0.2-1.3); CALC OSMOLALITY 285 mosm/kg (275-300); CALCIUM 8.5 mg/dL (8.5-10.1); CARBON DIOXIDE 26.7 mmol/L (21.0-32.0); CHLORIDE - SERUM 107 mmol/L (98-107); CREATININE - SERUM 0.9 mg/dL (0.6-1.3); GLUCOSE 126 mg/dL (74-106); MAGNESIUM - SERUM 1.6 mg/dL (1.8-2.4); POTASSIUM - SERUM 3.9 mmol/L (3.5-5.1); PROTEIN - SERUM 5.2 g/dL (6.4-8.2); SODIUM 142 mmol/L (136-145); UREA NITROGEN 15 mg/dL (7-18); eGFR NON AFRICAN AMERICAN > 90 mL/min (90-120)
== END | disposition home or self-care (01) ==
LOC: D.LABREF 12:05
PROVIDERS: ATTEND Internal Medicine Hematology & Oncology
DX: C90.00 Multiple myeloma not having achieved remission (principal)

== ENCOUNTER → 2019-11-20 13:29 | Outpatient (CLI) | payer MEDICARE ==
[2018-08-24 03:35] VITALS: BMI 31.8
[2019-11-20 13:46] LABS: BASOPHILS 0.3 % (0-2); EOSINOPHILS 1.4 % (0-7); HEMATOCRIT 28.6 % (42.0-54.0); HEMOGLOBIN 9.4 g/dL (13.5-17.5); IMMATURE GRANULOCYTES 0.3 % (0-5); MCH 34.3 pg (26.0-34.0); MCHC 32.9 g/dL (31.0-37.0); MCV 104.4 fL (80.0-100.0); MEAN PLATELET VOLUME 10.2 fL (7.4-10.4); MONOCYTES 15.2 % (2-11); NEUTROPHILS 59.8 % (40-80); PLATELET COUNT 102 10x3/uL (130-400); RBC 2.74 10x6/uL (4.20-6.10); RDW 14.8 % (11.5-14.5); WBC 3.6 10x3/uL (4.8-10.8)
[2019-11-20 14:02] LABS: ALBUMIN 2.8 g/dL (3.4-5.0); ALKALINE PHOSPHATASE 48 U/L (46-116); ALT (SGPT) 17 U/L (10-68); BILIRUBIN - TOTAL 0.23 mg/dL (0.2-1.3); CALC OSMOLALITY 287 mosm/kg (275-300); CALCIUM 8.4 mg/dL (8.5-10.1); CARBON DIOXIDE 29.5 mmol/L (21.0-32.0); CHLORIDE - SERUM 109 mmol/L (98-107); GLUCOSE 95 mg/dL (74-106); MAGNESIUM - SERUM 1.6 mg/dL (1.8-2.4); POTASSIUM - SERUM 4.1 mmol/L (3.5-5.1); SODIUM 145 mmol/L (136-145); UREA NITROGEN 10 mg/dL (7-18); eGFR NON AFRICAN AMERICAN 80 mL/min (90-120)
== END | disposition home or self-care (01) ==
LOC: D.LABREF 13:29
PROVIDERS: ATTEND Internal Medicine Hematology & Oncology
DX: C90.00 Multiple myeloma not having achieved remission (principal)

== ENCOUNTER → 2019-11-27 11:30 | Outpatient (CLI) | payer MEDICARE ==
[2018-08-24 03:35] VITALS: BMI 31.8
[2019-11-27 11:58] LABS: BASOPHILS 0.5 % (0-2); EOSINOPHILS 1.4 % (0-7); HEMATOCRIT 32.2 % (42.0-54.0); HEMOGLOBIN 10.9 g/dL (13.5-17.5); IMMATURE GRANULOCYTES 0.2 % (0-5); LYMPHOCYTES 25.9 % (15-50); MCH 34.5 pg (26.0-34.0); MCHC 33.9 g/dL (31.0-37.0); MCV 101.9 fL (80.0-100.0); MEAN PLATELET VOLUME 10.5 fL (7.4-10.4); MONOCYTES 13.1 % (2-11); NEUTROPHILS 58.9 % (40-80); RBC 3.16 10x6/uL (4.20-6.10); RDW 14.5 % (11.5-14.5); WBC 4.3 10x3/uL (4.8-10.8)
[2019-11-27 12:03] LABS: PLATELET COUNT 139 10x3/uL (130-400)
[2019-11-27 12:19] LABS: ALBUMIN 3.3 g/dL (3.4-5.0); ALKALINE PHOSPHATASE 55 U/L (46-116); ALT (SGPT) 17 U/L (10-68); BILIRUBIN - TOTAL 0.23 mg/dL (0.2-1.3); CALC OSMOLALITY 276 mosm/kg (275-300); CALCIUM 8.5 mg/dL (8.5-10.1); CHLORIDE - SERUM 104 mmol/L (98-107); GLUCOSE 120 mg/dL (74-106); MAGNESIUM - SERUM 1.7 mg/dL (1.8-2.4); POTASSIUM - SERUM 4.2 mmol/L (3.5-5.1); PROTEIN - SERUM 5.5 g/dL (6.4-8.2); SODIUM 138 mmol/L (136-145); UREA NITROGEN 12 mg/dL (7-18); eGFR NON AFRICAN AMERICAN 80 mL/min (90-120)
[2019-11-28 13:10] LABS: IMMUNOGLOBULIN A 8 mg/dL (61-437); IMMUNOGLOBULIN G 236 mg/dL (700-1600); IMMUNOGLOBULIN M 13 mg/dL (20-172); SPE - A/G RATIO 1.7 (0.7-1.7); SPE - ALBUMIN 3.3 g/dL (2.9-4.4); SPE - ALPHA-1 GLOBULIN 0.2 g/dL (0.0-0.4); SPE - ALPHA-2 GLOBULIN 0.8 g/dL (0.4-1.0); SPE - BETA GLOBULIN 0.8 g/dL (0.7-1.3); SPE - GAMMA GLOBULIN 0.2 g/dL (0.4-1.8); SPE - M-SPIKE Not Observed g/dL (Not Observed); SPE - TOTAL PROTEIN 5.3 g/dL (6.0-8.5)
[2019-11-29 07:13] LABS: BETA-2 MICROGLOBULIN 2.2 mg/L (0.6-2.4)
[2019-11-29 21:06] LABS: IMMUNOGLOBULIN E 14 IU/mL (6-495)
== END | disposition home or self-care (01) ==
LOC: D.LABREF 11:30
PROVIDERS: ATTEND Internal Medicine Hematology & Oncology
DX: C90.00 Multiple myeloma not having achieved remission (principal)

== ENCOUNTER → 2019-12-04 12:29 | Outpatient (CLI) | payer MEDICARE ==
[2018-08-24 03:35] VITALS: BMI 31.8
[2019-12-04 13:20] LABS: BASOPHILS 0.2 % (0-2); EOSINOPHILS 0.6 % (0-7); HEMOGLOBIN 10.8 g/dL (13.5-17.5); IMMATURE GRANULOCYTES 0.2 % (0-5); LYMPHOCYTES 23.9 % (15-50); MCH 33.9 pg (26.0-34.0); MCHC 33.8 g/dL (31.0-37.0); MCV 100.3 fL (80.0-100.0); MEAN PLATELET VOLUME 9.8 fL (7.4-10.4); MONOCYTES 13.1 % (2-11); PLATELET COUNT 121 10x3/uL (130-400); RBC 3.19 10x6/uL (4.20-6.10); RDW 13.7 % (11.5-14.5); WBC 4.7 10x3/uL (4.8-10.8)
[2019-12-04 13:32] LABS: ALBUMIN 3.2 g/dL (3.4-5.0); ALKALINE PHOSPHATASE 58 U/L (46-116); ALT (SGPT) 21 U/L (10-68); BILIRUBIN - DIRECT 0.05 mg/dL (0.00-0.30); BILIRUBIN - INDIRECT 0.17 mg/dL (0.00-1.00); BILIRUBIN - TOTAL 0.22 mg/dL (0.2-1.3); C-REACTIVE PROTEIN 0.2 mg/dL (0.0-0.9); CALC OSMOLALITY 278 mosm/kg (275-300); CALCIUM 8.4 mg/dL (8.5-10.1); CARBON DIOXIDE 25.3 mmol/L (21.0-32.0); CHLORIDE - SERUM 104 mmol/L (98-107); GLUCOSE 135 mg/dL (74-106); MAGNESIUM - SERUM 1.3 mg/dL (1.8-2.4); PHOSPHOROUS 3.3 mg/dL (2.5-4.9); PROTEIN - SERUM 5.6 g/dL (6.4-8.2); SODIUM 138 mmol/L (136-145); UREA NITROGEN 15 mg/dL (7-18); eGFR NON AFRICAN AMERICAN 80 mL/min (90-120)
== END | disposition home or self-care (01) ==
LOC: D.LABREF 12:29
PROVIDERS: ATTEND Internal Medicine Hematology & Oncology
DX: C90.00 Multiple myeloma not having achieved remission (principal)

== ENCOUNTER → 2019-12-11 13:13 | Outpatient (CLI) | payer MEDICARE ==
[2018-08-24 03:35] VITALS: BMI 31.8
[2019-12-11 13:29] LABS: BASOPHILS 0.2 % (0-2); EOSINOPHILS 0.4 % (0-7); HEMATOCRIT 28.6 % (42.0-54.0); HEMOGLOBIN 9.6 g/dL (13.5-17.5); IMMATURE GRANULOCYTES 0.2 % (0-5); LYMPHOCYTES 21.6 % (15-50); MCH 34.2 pg (26.0-34.0); MCHC 33.6 g/dL (31.0-37.0); MCV 101.8 fL (80.0-100.0); MEAN PLATELET VOLUME 10.3 fL (7.4-10.4); NEUTROPHILS 63.6 % (40-80); PLATELET COUNT 138 10x3/uL (130-400); RBC 2.81 10x6/uL (4.20-6.10); RDW 13.6 % (11.5-14.5); WBC 4.7 10x3/uL (4.8-10.8)
[2019-12-11 13:47] LABS: ALBUMIN 3.1 g/dL (3.4-5.0); ALKALINE PHOSPHATASE 55 U/L (46-116); ALT (SGPT) 15 U/L (10-68); BILIRUBIN - DIRECT 0.03 mg/dL (0.00-0.30); BILIRUBIN - INDIRECT 0.16 mg/dL (0.00-1.00); BILIRUBIN - TOTAL 0.19 mg/dL (0.2-1.3); CALC OSMOLALITY 280 mosm/kg (275-300); CALCIUM 8.3 mg/dL (8.5-10.1); CARBON DIOXIDE 27.3 mmol/L (21.0-32.0); CHLORIDE - SERUM 105 mmol/L (98-107); GLUCOSE 129 mg/dL (74-106); MAGNESIUM - SERUM 1.5 mg/dL (1.8-2.4); PHOSPHOROUS 3.6 mg/dL (2.5-4.9); POTASSIUM - SERUM 4.1 mmol/L (3.5-5.1); PROTEIN - SERUM 5.5 g/dL (6.4-8.2); SODIUM 139 mmol/L (136-145); UREA NITROGEN 14 mg/dL (7-18); eGFR NON AFRICAN AMERICAN 80 mL/min (90-120)
== END | disposition home or self-care (01) ==
LOC: D.LABREF 13:13
PROVIDERS: ATTEND Internal Medicine Hematology & Oncology
DX: C90.00 Multiple myeloma not having achieved remission (principal); B95.8 Unspecified staphylococcus as the cause of diseases classified elsewhere; T80.212A Local infection due to central venous catheter, initial encounter

== ENCOUNTER → 2020-01-15 10:59 | Outpatient (CLI) | payer MEDICARE ==
[2018-08-24 03:35] VITALS: BMI 31.8
[2020-01-15 11:52] LABS: BASOPHILS 0 % (0-2); HEMATOCRIT 27.4 % (42.0-54.0); HEMOGLOBIN 9.4 g/dL (13.5-17.5); IMMATURE GRANULOCYTES 0.6 % (0-5); LYMPHOCYTES 22.2 % (15-50); MCH 34.2 pg (26.0-34.0); MCHC 34.3 g/dL (31.0-37.0); MCV 99.6 fL (80.0-100.0); MEAN PLATELET VOLUME 12.6 fL (7.4-10.4); MONOCYTES 17.1 % (2-11); NEUTROPHILS 59.1 % (40-80); RBC 2.75 10x6/uL (4.20-6.10); RDW 13.3 % (11.5-14.5); WBC 3.2 10x3/uL (4.8-10.8)
[2020-01-15 11:54] LABS: PLATELET COUNT 52 10x3/uL (130-400)
[2020-01-15 12:07] LABS: ALBUMIN 2.9 g/dL (3.4-5.0); ALKALINE PHOSPHATASE 70 U/L (30-120); ALT (SGPT) 16 U/L (10-68); C-REACTIVE PROTEIN 0.6 mg/dL (0.0-0.9); CALC OSMOLALITY 275 mosm/kg (275-300); CALCIUM 8.5 mg/dL (8.5-10.1); CARBON DIOXIDE 27.1 mmol/L (21.0-32.0); CHLORIDE - SERUM 104 mmol/L (98-107); GLUCOSE 150 mg/dL (74-106); MAGNESIUM - SERUM 1.7 mg/dL (1.8-2.4); PHOSPHOROUS 3.9 mg/dL (2.5-4.9); POTASSIUM - SERUM 4.3 mmol/L (3.5-5.1); PROTEIN - SERUM 5.4 g/dL (6.4-8.2); SODIUM 136 mmol/L (136-145); UREA NITROGEN 15 mg/dL (7-18); eGFR NON AFRICAN AMERICAN 80 mL/min (90-120)
[2020-01-15 13:10] LABS: PLATELET ESTIMATE DECREASED
[2020-01-16 13:10] LABS: SPE - A/G RATIO 1.8 (0.7-1.7); SPE - ALBUMIN 3.1 g/dL (2.9-4.4); SPE - ALPHA-1 GLOBULIN 0.2 g/dL (0.0-0.4); SPE - ALPHA-2 GLOBULIN 0.7 g/dL (0.4-1.0); SPE - BETA GLOBULIN 0.7 g/dL (0.7-1.3); SPE - GAMMA GLOBULIN 0.1 g/dL (0.4-1.8); SPE - M-SPIKE Not Observed g/dL (Not Observed); SPE - TOTAL PROTEIN 4.8 g/dL (6.0-8.5)
[2020-01-16 14:09] LABS: IMMUNOGLOBULIN A 7 mg/dL (61-437); IMMUNOGLOBULIN G 205 mg/dL (700-1600); IMMUNOGLOBULIN M 13 mg/dL (20-172)
[2020-01-17 15:11] LABS: BETA-2 MICROGLOBULIN 2.2 mg/L (0.6-2.4)
== END | disposition home or self-care (01) ==
LOC: D.LABREF 10:59
PROVIDERS: ATTEND Internal Medicine Hematology & Oncology
DX: C90.00 Multiple myeloma not having achieved remission (principal)

== ENCOUNTER → 2020-01-22 11:58 | Outpatient (CLI) | payer MEDICARE ==
[2018-08-24 03:35] VITALS: BMI 31.8
[2020-01-22 15:46] LABS: BASOPHILS 0.2 % (0-2); EOSINOPHILS 1.2 % (0-7); HEMATOCRIT 24.3 % (42.0-54.0); HEMOGLOBIN 8.2 g/dL (13.5-17.5); IMMATURE GRANULOCYTES 0.9 % (0-5); LYMPHOCYTES 12.3 % (15-50); MCH 33.7 pg (26.0-34.0); MCHC 33.7 g/dL (31.0-37.0); MEAN PLATELET VOLUME 11.9 fL (7.4-10.4); MONOCYTES 3.2 % (2-11); NEUTROPHILS 82.2 % (40-80); PLATELET COUNT 58 10x3/uL (130-400); RBC 2.43 10x6/uL (4.20-6.10); RDW 13.9 % (11.5-14.5); WBC 6.6 10x3/uL (4.8-10.8)
[2020-01-22 16:08] LABS: ALBUMIN 2.9 g/dL (3.4-5.0); ALKALINE PHOSPHATASE 57 U/L (30-120); ALT (SGPT) 15 U/L (10-68); BILIRUBIN - TOTAL 0.32 mg/dL (0.2-1.3); CALC OSMOLALITY 276 mosm/kg (275-300); CHLORIDE - SERUM 104 mmol/L (98-107); CREATININE - SERUM 1.1 mg/dL (0.6-1.3); GLUCOSE 131 mg/dL (74-106); MAGNESIUM - SERUM 1.4 mg/dL (1.8-2.4); POTASSIUM - SERUM 3.8 mmol/L (3.5-5.1); PROTEIN - SERUM 4.9 g/dL (6.4-8.2); SODIUM 137 mmol/L (136-145); UREA NITROGEN 14 mg/dL (7-18); eGFR NON AFRICAN AMERICAN 72 mL/min (90-120)
[2020-01-22 16:14] LABS: C-REACTIVE PROTEIN < 0.2 mg/dL (0.0-0.9)
[2020-01-22 16:36] LABS: PLATELET ESTIMATE DECREASED
[2020-01-23 14:09] LABS: IMMUNOFIXATION Note: (()); IMMUNOGLOBULIN A 11 mg/dL (61-437); IMMUNOGLOBULIN G 229 mg/dL (700-1600); IMMUNOGLOBULIN M 10 mg/dL (20-172)
[2020-01-23 15:10] LABS: SPE - A/G RATIO 1.6 (0.7-1.7); SPE - ALBUMIN 2.9 g/dL (2.9-4.4); SPE - ALPHA-1 GLOBULIN 0.2 g/dL (0.0-0.4); SPE - ALPHA-2 GLOBULIN 0.7 g/dL (0.4-1.0); SPE - BETA GLOBULIN 0.7 g/dL (0.7-1.3); SPE - GAMMA GLOBULIN 0.2 g/dL (0.4-1.8); SPE - M-SPIKE Not Observed g/dL (Not Observed); SPE - TOTAL PROTEIN 4.7 g/dL (6.0-8.5)
[2020-01-24 13:10] LABS: BETA-2 MICROGLOBULIN 2.4 mg/L (0.6-2.4)
== END | disposition home or self-care (01) ==
LOC: D.LAB 11:58
PROVIDERS: ATTEND Internal Medicine Hematology & Oncology
DX: C90.00 Multiple myeloma not having achieved remission (principal)

== ENCOUNTER → 2020-01-29 12:35 | Outpatient (CLI) | payer MEDICARE ==
[2018-08-24 03:35] VITALS: BMI 31.8
[2020-01-29 13:44] LABS: HEMATOCRIT 24.5 % (42.0-54.0); HEMOGLOBIN 8.2 g/dL (13.5-17.5); MCH 34.3 pg (26.0-34.0); MCHC 33.5 g/dL (31.0-37.0); MCV 102.5 fL (80.0-100.0); MEAN PLATELET VOLUME 11.2 fL (7.4-10.4); RBC 2.39 10x6/uL (4.20-6.10); RDW 14.8 % (11.5-14.5); WBC 7.9 10x3/uL (4.8-10.8)
[2020-01-29 13:57] LABS: ALKALINE PHOSPHATASE 74 U/L (30-120); ALT (SGPT) 15 U/L (10-68); BILIRUBIN - TOTAL 0.16 mg/dL (0.2-1.3); CALC OSMOLALITY 279 mosm/kg (275-300); CARBON DIOXIDE 24.4 mmol/L (21.0-32.0); CHLORIDE - SERUM 106 mmol/L (98-107); CREATININE - SERUM 1.1 mg/dL (0.6-1.3); GLUCOSE 132 mg/dL (74-106); MAGNESIUM - SERUM 1.6 mg/dL (1.8-2.4); PHOSPHOROUS 3.3 mg/dL (2.5-4.9); POTASSIUM - SERUM 4.1 mmol/L (3.5-5.1); SODIUM 139 mmol/L (136-145); UREA NITROGEN 12 mg/dL (7-18); eGFR NON AFRICAN AMERICAN 72 mL/min (90-120)
[2020-01-29 14:00] LABS: C-REACTIVE PROTEIN < 0.2 mg/dL (0.0-0.9)
[2020-01-29 14:17] LABS: PLATELET COUNT 110 10x3/uL (130-400)
[2020-01-29 15:21] LABS: EOSINOPHILS 3 % (0-7); LYMPHOCYTES 26 % (15-50); MONOCYTES 7 % (2-11); NEUTROPHILS 59 % (40-80); PLATELET ESTIMATE DECREASED
== END | disposition home or self-care (01) ==
LOC: D.LABREF 12:35
PROVIDERS: ATTEND Internal Medicine Hematology & Oncology
DX: C90.00 Multiple myeloma not having achieved remission (principal)

== ENCOUNTER → 2020-02-12 11:04 | Outpatient (CLI) | payer MEDICARE ==
[2018-08-24 03:35] VITALS: BMI 31.8
[2020-02-12 11:25] LABS: HEMATOCRIT 26.7 % (42.0-54.0); HEMOGLOBIN 8.7 g/dL (13.5-17.5); LYMPHOCYTES 7.9 % (15-50); MCH 34.9 pg (26.0-34.0); MCHC 32.6 g/dL (31.0-37.0); MCV 107.2 fL (80.0-100.0); MEAN PLATELET VOLUME 9.8 fL (7.4-10.4); RBC 2.49 10x6/uL (4.20-6.10); RDW 17.5 % (11.5-14.5); WBC 10.1 10x3/uL (4.8-10.8)
[2020-02-12 11:29] LABS: PLATELET COUNT 216 10x3/uL (130-400)
[2020-02-12 11:38] LABS: CALC OSMOLALITY 279 mosm/kg (275-300); CALCIUM 8.1 mg/dL (8.5-10.1); CARBON DIOXIDE 28.2 mmol/L (21.0-32.0); CHLORIDE - SERUM 105 mmol/L (98-107); GLUCOSE 109 mg/dL (74-106); MAGNESIUM - SERUM 1.8 mg/dL (1.8-2.4); PHOSPHOROUS 3.2 mg/dL (2.5-4.9); POTASSIUM - SERUM 4.3 mmol/L (3.5-5.1); SODIUM 139 mmol/L (136-145); UREA NITROGEN 14 mg/dL (7-18); eGFR NON AFRICAN AMERICAN 80 mL/min (90-120)
[2020-02-12 11:43] LABS: C-REACTIVE PROTEIN < 0.2 mg/dL (0.0-0.9)
== END | disposition home or self-care (01) ==
LOC: D.LABREF 11:04
PROVIDERS: ATTEND Internal Medicine Hematology & Oncology
DX: C90.00 Multiple myeloma not having achieved remission (principal)

== ENCOUNTER → 2020-02-19 11:02 | Outpatient (CLI) | payer MEDICARE ==
[2018-08-24 03:35] VITALS: BMI 31.8
[2020-02-19 11:36] LABS: ALBUMIN 3.2 g/dL (3.4-5.0); ALKALINE PHOSPHATASE 123 U/L (30-120); ALT (SGPT) 16 U/L (10-68); BILIRUBIN - TOTAL 0.34 mg/dL (0.2-1.3); CALC OSMOLALITY 271 mosm/kg (275-300); CALCIUM 8.1 mg/dL (8.5-10.1); CARBON DIOXIDE 24.4 mmol/L (21.0-32.0); CHLORIDE - SERUM 101 mmol/L (98-107); GLUCOSE 92 mg/dL (74-106); MAGNESIUM - SERUM 1.6 mg/dL (1.8-2.4); PHOSPHOROUS 3.9 mg/dL (2.5-4.9); POTASSIUM - SERUM 3.9 mmol/L (3.5-5.1); PROTEIN - SERUM 5.2 g/dL (6.4-8.2); SODIUM 135 mmol/L (136-145); UREA NITROGEN 19 mg/dL (7-18); eGFR NON AFRICAN AMERICAN 80 mL/min (90-120)
[2020-02-19 11:38] LABS: C-REACTIVE PROTEIN < 0.2 mg/dL (0.0-0.9)
[2020-02-19 11:42] LABS: HEMOGLOBIN 9.2 g/dL (13.5-17.5); MCH 34.3 pg (26.0-34.0); MCHC 32.9 g/dL (31.0-37.0); MCV 104.5 fL (80.0-100.0); MEAN PLATELET VOLUME 9.6 fL (7.4-10.4); PLATELET COUNT 175 10x3/uL (130-400); RBC 2.68 10x6/uL (4.20-6.10); RDW 15.9 % (11.5-14.5); WBC 54.4 10x3/uL (4.8-10.8)
[2020-02-19 12:49] LABS: LYMPHOCYTES 5 % (15-50); MONOCYTES 3 % (2-11); NEUTROPHILS 92 % (40-80)
[2020-02-19 12:52] LABS: PLATELET ESTIMATE NORMAL; PLATELET MORPHOLOGY NORMAL PLT MORPH
[2020-02-20 11:08] LABS: IMMUNOGLOBULIN A 8 mg/dL (61-437); IMMUNOGLOBULIN G 229 mg/dL (603-1613); IMMUNOGLOBULIN M 8 mg/dL (20-172); SPE - A/G RATIO 1.7 (0.7-1.7); SPE - ALBUMIN 3.2 g/dL (2.9-4.4); SPE - ALPHA-1 GLOBULIN 0.2 g/dL (0.0-0.4); SPE - ALPHA-2 GLOBULIN 0.7 g/dL (0.4-1.0); SPE - BETA GLOBULIN 0.8 g/dL (0.7-1.3); SPE - GAMMA GLOBULIN 0.2 g/dL (0.4-1.8); SPE - M-SPIKE Not Observed g/dL (Not Observed); SPE - TOTAL PROTEIN 5.1 g/dL (6.0-8.5)
[2020-02-21 13:08] LABS: BETA-2 MICROGLOBULIN 2.4 mg/L (0.6-2.4)
== END | disposition home or self-care (01) ==
LOC: D.LABREF 11:02
PROVIDERS: ATTEND Internal Medicine Hematology & Oncology
DX: C90.00 Multiple myeloma not having achieved remission (principal)

== ENCOUNTER → 2020-02-26 10:35 | Outpatient (CLI) | payer MEDICARE ==
[2018-08-24 03:35] VITALS: BMI 31.8
[2020-02-26 10:48] LABS: BASOPHILS 0.3 % (0-2); EOSINOPHILS 0.3 % (0-7); HEMATOCRIT 27.5 % (42.0-54.0); HEMOGLOBIN 8.9 g/dL (13.5-17.5); IMMATURE GRANULOCYTES 0.5 % (0-5); LYMPHOCYTES 12.2 % (15-50); MCHC 32.4 g/dL (31.0-37.0); MEAN PLATELET VOLUME 11.2 fL (7.4-10.4); MONOCYTES 14.8 % (2-11); NEUTROPHILS 71.9 % (40-80); RBC 2.62 10x6/uL (4.20-6.10); RDW 15.6 % (11.5-14.5); WBC 7.3 10x3/uL (4.8-10.8)
[2020-02-26 10:53] LABS: PLATELET COUNT 93 10x3/uL (130-400)
[2020-02-26 11:06] LABS: ALBUMIN 3.3 g/dL (3.4-5.0); ALKALINE PHOSPHATASE 105 U/L (30-120); ALT (SGPT) 15 U/L (10-68); CALCIUM 8.1 mg/dL (8.5-10.1); CARBON DIOXIDE 23.8 mmol/L (21.0-32.0); CHLORIDE - SERUM 102 mmol/L (98-107); CREATININE - SERUM 1.2 mg/dL (0.6-1.3); MAGNESIUM - SERUM 1.8 mg/dL (1.8-2.4); PROTEIN - SERUM 5.3 g/dL (6.4-8.2); SODIUM 135 mmol/L (136-145); UREA NITROGEN 17 mg/dL (7-18); eGFR NON AFRICAN AMERICAN 65 mL/min (90-120)
[2020-02-26 11:08] LABS: C-REACTIVE PROTEIN < 0.2 mg/dL (0.0-0.9); CALC OSMOLALITY 274 mosm/kg (275-300); GLUCOSE 145 mg/dL (74-106)
[2020-02-26 11:11] LABS: PLATELET ESTIMATE DECREASED
== END | disposition home or self-care (01) ==
LOC: D.LABREF 10:35
PROVIDERS: ATTEND Internal Medicine Hematology & Oncology
DX: C90.00 Multiple myeloma not having achieved remission (principal)

== ENCOUNTER → 2020-03-04 11:47 | Outpatient (CLI) | payer MEDICARE ==
[2018-08-24 03:35] VITALS: BMI 31.8
[2020-03-04 12:27] LABS: HEMATOCRIT 28.3 % (42.0-54.0); HEMOGLOBIN 9.1 g/dL (13.5-17.5); MCH 34.5 pg (26.0-34.0); MCHC 32.2 g/dL (31.0-37.0); MCV 107.2 fL (80.0-100.0); MEAN PLATELET VOLUME 10.9 fL (7.4-10.4); PLATELET COUNT 93 10x3/uL (130-400); RBC 2.64 10x6/uL (4.20-6.10); WBC 26.3 10x3/uL (4.8-10.8)
[2020-03-04 12:30] LABS: ALBUMIN 3.2 g/dL (3.4-5.0); ALKALINE PHOSPHATASE 77 U/L (30-120); ALT (SGPT) 17 U/L (10-68); C-REACTIVE PROTEIN < 0.2 mg/dL (0.0-0.9); CALC OSMOLALITY 275 mosm/kg (275-300); CALCIUM 8.1 mg/dL (8.5-10.1); CARBON DIOXIDE 27.3 mmol/L (21.0-32.0); CHLORIDE - SERUM 103 mmol/L (98-107); GLUCOSE 91 mg/dL (74-106); MAGNESIUM - SERUM 1.6 mg/dL (1.8-2.4); PHOSPHOROUS 3.4 mg/dL (2.5-4.9); POTASSIUM - SERUM 4.2 mmol/L (3.5-5.1); PROTEIN - SERUM 5.2 g/dL (6.4-8.2); SODIUM 137 mmol/L (136-145); UREA NITROGEN 17 mg/dL (7-18); eGFR NON AFRICAN AMERICAN 80 mL/min (90-120)
[2020-03-04 14:17] LABS: ANISOCYTOSIS OCC; LYMPHOCYTES 4 % (15-50); MONOCYTES 3 % (2-11); NEUTROPHILS 81 % (40-80); PLATELET ESTIMATE DECREASED
[2020-03-05 13:08] LABS: IMMUNOFIXATION Note: (()); IMMUNOGLOBULIN A 7 mg/dL (61-437); IMMUNOGLOBULIN G 238 mg/dL (603-1613); IMMUNOGLOBULIN M 7 mg/dL (20-172); SPE - A/G RATIO 1.7 (0.7-1.7); SPE - ALBUMIN 3.1 g/dL (2.9-4.4); SPE - ALPHA-1 GLOBULIN 0.2 g/dL (0.0-0.4); SPE - ALPHA-2 GLOBULIN 0.6 g/dL (0.4-1.0); SPE - BETA GLOBULIN 0.7 g/dL (0.7-1.3); SPE - GAMMA GLOBULIN 0.2 g/dL (0.4-1.8); SPE - M-SPIKE Not Observed g/dL (Not Observed); SPE - TOTAL PROTEIN 4.9 g/dL (6.0-8.5)
[2020-03-06 04:07] LABS: BETA-2 MICROGLOBULIN 2.2 mg/L (0.6-2.4)
[2020-03-06 17:08] LABS: IMMUNOGLOBULIN E 2 IU/mL (6-495)
== END | disposition home or self-care (01) ==
LOC: D.LABREF 11:47
PROVIDERS: ATTEND Internal Medicine Hematology & Oncology
DX: C90.00 Multiple myeloma not having achieved remission (principal)

== ENCOUNTER → 2020-03-11 13:40 | Outpatient (CLI) | payer MEDICARE ==
[2018-08-24 03:35] VITALS: BMI 31.8
[2020-03-11 14:21] LABS: ALKALINE PHOSPHATASE 84 U/L (30-120); ALT (SGPT) 14 U/L (10-68); BILIRUBIN - TOTAL 0.14 mg/dL (0.2-1.3); C-REACTIVE PROTEIN < 0.2 mg/dL (0.0-0.9); CALC OSMOLALITY 276 mosm/kg (275-300); CALCIUM 7.4 mg/dL (8.5-10.1); CARBON DIOXIDE 27.6 mmol/L (21.0-32.0); CHLORIDE - SERUM 104 mmol/L (98-107); GLUCOSE 103 mg/dL (74-106); MAGNESIUM - SERUM 1.5 mg/dL (1.8-2.4); PHOSPHOROUS 3.6 mg/dL (2.5-4.9); PROTEIN - SERUM 4.8 g/dL (6.4-8.2); SODIUM 139 mmol/L (136-145); UREA NITROGEN 11 mg/dL (7-18); eGFR NON AFRICAN AMERICAN 80 mL/min (90-120)
[2020-03-11 14:22] LABS: BASOPHILS 0.4 % (0-2); EOSINOPHILS 0.4 % (0-7); HEMATOCRIT 27.6 % (42.0-54.0); HEMOGLOBIN 8.8 g/dL (13.5-17.5); IMMATURE GRANULOCYTES 0.8 % (0-5); LYMPHOCYTES 12.2 % (15-50); MCH 33.7 pg (26.0-34.0); MCHC 31.9 g/dL (31.0-37.0); MCV 105.7 fL (80.0-100.0); MEAN PLATELET VOLUME 11.7 fL (7.4-10.4); MONOCYTES 12.4 % (2-11); NEUTROPHILS 73.8 % (40-80); RBC 2.61 10x6/uL (4.20-6.10); RDW 15.6 % (11.5-14.5)
[2020-03-11 14:24] LABS: PLATELET COUNT 70 10x3/uL (130-400)
[2020-03-11 14:25] LABS: PLATELET ESTIMATE DECREASED
== END | disposition home or self-care (01) ==
LOC: D.LABREF 13:40
PROVIDERS: ATTEND Internal Medicine Hematology & Oncology
DX: C90.00 Multiple myeloma not having achieved remission (principal)

== ENCOUNTER → 2020-03-25 09:10 | Outpatient (CLI) | payer MEDICARE ==
[2018-08-24 03:35] VITALS: BMI 31.8
[2020-03-25 15:58] LABS: BASOPHILS 0.2 % (0-2); EOSINOPHILS 0.4 % (0-7); HEMATOCRIT 29.7 % (42.0-54.0); HEMOGLOBIN 9.5 g/dL (13.5-17.5); IMMATURE GRANULOCYTES 1.1 % (0-5); LYMPHOCYTES 11.4 % (15-50); MCH 34.5 pg (26.0-34.0); MEAN PLATELET VOLUME 11.3 fL (7.4-10.4); MONOCYTES 11.5 % (2-11); NEUTROPHILS 75.4 % (40-80); PLATELET COUNT 80 10x3/uL (130-400); RBC 2.75 10x6/uL (4.20-6.10); RDW 15.1 % (11.5-14.5)
[2020-03-25 16:17] LABS: ALBUMIN 3.5 g/dL (3.4-5.0); ALKALINE PHOSPHATASE 123 U/L (30-120); ALT (SGPT) 14 U/L (10-68); BILIRUBIN - TOTAL 0.18 mg/dL (0.2-1.3); CARBON DIOXIDE 25.2 mmol/L (21.0-32.0); CREATININE - SERUM 0.9 mg/dL (0.6-1.3); GLUCOSE 91 mg/dL (74-106); MAGNESIUM - SERUM 1.8 mg/dL (1.8-2.4); PHOSPHOROUS 3.5 mg/dL (2.5-4.9); POTASSIUM - SERUM 3.6 mmol/L (3.5-5.1); PROTEIN - SERUM 5.4 g/dL (6.4-8.2); UREA NITROGEN 17 mg/dL (7-18); eGFR NON AFRICAN AMERICAN > 90 mL/min (90-120)
[2020-03-25 16:24] LABS: CALC OSMOLALITY 273 mosm/kg (275-300); CHLORIDE - SERUM 102 mmol/L (98-107); SODIUM 136 mmol/L (136-145)
[2020-03-25 16:44] LABS: PLATELET ESTIMATE DECREASED
[2020-03-26 16:08] LABS: IMMUNOFIXATION Note: (()); IMMUNOGLOBULIN A 6 mg/dL (61-437); IMMUNOGLOBULIN G 236 mg/dL (603-1613); IMMUNOGLOBULIN M 7 mg/dL (20-172); SPE - A/G RATIO 1.8 (0.7-1.7); SPE - ALBUMIN 3.1 g/dL (2.9-4.4); SPE - ALPHA-1 GLOBULIN 0.2 g/dL (0.0-0.4); SPE - ALPHA-2 GLOBULIN 0.7 g/dL (0.4-1.0); SPE - BETA GLOBULIN 0.6 g/dL (0.7-1.3); SPE - GAMMA GLOBULIN 0.2 g/dL (0.4-1.8); SPE - M-SPIKE 0.1 g/dL (Not Observed); SPE - TOTAL PROTEIN 4.8 g/dL (6.0-8.5)
[2020-03-27 13:09] LABS: BETA-2 MICROGLOBULIN 2.4 mg/L (0.6-2.4)
[2020-03-27 18:08] LABS: IMMUNOGLOBULIN E 3 IU/mL (6-495)
== END | disposition home or self-care (01) ==
LOC: D.LABREF 09:10
PROVIDERS: ATTEND Internal Medicine Hematology & Oncology
DX: C90.00 Multiple myeloma not having achieved remission (principal)

== ENCOUNTER → 2020-04-01 22:43 | Outpatient (CLI) | payer MEDICARE ==
[2018-08-24 03:35] VITALS: BMI 31.8
[2020-04-01 23:03] LABS: HEMATOCRIT 30.1 % (42.0-54.0); HEMOGLOBIN 10.1 g/dL (13.5-17.5); MCH 36.1 pg (26.0-34.0); MCHC 33.6 g/dL (31.0-37.0); MCV 107.5 fL (80.0-100.0); MEAN PLATELET VOLUME 10.3 fL (7.4-10.4); PLATELET COUNT 117 10x3/uL (130-400); RDW 15.1 % (11.5-14.5); WBC 39.7 10x3/uL (4.8-10.8)
[2020-04-01 23:13] LABS: ALBUMIN 3.4 g/dL (3.4-5.0); ANION GAP 16.2 mmol/L (8-16); BILIRUBIN - TOTAL 0.44 mg/dL (0.2-1.3); CALCIUM 8.1 mg/dL (8.5-10.1); CARBON DIOXIDE 24.7 mmol/L (21.0-32.0); CREATININE - SERUM 1.2 mg/dL (0.6-1.3); MAGNESIUM - SERUM 1.6 mg/dL (1.8-2.4); POTASSIUM - SERUM 3.9 mmol/L (3.5-5.1); PROTEIN - SERUM 5.4 g/dL (6.4-8.2)
[2020-04-01 23:31] LABS: BASOPHILS 1 % (0-2); LYMPHOCYTES 3 % (15-50); MONOCYTES 3 % (2-11); NEUTROPHILS 68 % (40-80)
[2020-04-01 23:32] LABS: PLATELET ESTIMATE DECREASED
== END | disposition home or self-care (01) ==
LOC: D.LABREF 22:43
PROVIDERS: ATTEND Internal Medicine Hematology & Oncology
DX: C90.00 Multiple myeloma not having achieved remission (principal)

== ENCOUNTER → 2020-04-08 10:40 | Outpatient (CLI) | payer MEDICARE ==
[2018-08-24 03:35] VITALS: BMI 31.8
[2020-04-08 12:40] LABS: BASOPHILS 0.1 % (0-2); EOSINOPHILS 0.1 % (0-7); HEMATOCRIT 28.8 % (42.0-54.0); HEMOGLOBIN 9.4 g/dL (13.5-17.5); IMMATURE GRANULOCYTES 1.1 % (0-5); LYMPHOCYTES 9.1 % (15-50); MCH 34.7 pg (26.0-34.0); MCHC 32.6 g/dL (31.0-37.0); MCV 106.3 fL (80.0-100.0); MEAN PLATELET VOLUME 11.3 fL (7.4-10.4); MONOCYTES 10.2 % (2-11); NEUTROPHILS 79.4 % (40-80); PLATELET COUNT 104 10x3/uL (130-400); RBC 2.71 10x6/uL (4.20-6.10); RDW 14.1 % (11.5-14.5); WBC 8.1 10x3/uL (4.8-10.8)
[2020-04-08 12:54] LABS: ALBUMIN 3.3 g/dL (3.4-5.0); ALKALINE PHOSPHATASE 103 U/L (30-120); ALT (SGPT) 15 U/L (10-68); BILIRUBIN - TOTAL 0.16 mg/dL (0.2-1.3); C-REACTIVE PROTEIN < 0.2 mg/dL (0.0-0.9); CALC OSMOLALITY 274 mosm/kg (275-300); CARBON DIOXIDE 23.3 mmol/L (21.0-32.0); CHLORIDE - SERUM 106 mmol/L (98-107); GLUCOSE 128 mg/dL (74-106); MAGNESIUM - SERUM 1.7 mg/dL (1.8-2.4); PHOSPHOROUS 3.1 mg/dL (2.5-4.9); POTASSIUM - SERUM 4.2 mmol/L (3.5-5.1); PROTEIN - SERUM 5.2 g/dL (6.4-8.2); SODIUM 137 mmol/L (136-145); UREA NITROGEN 11 mg/dL (7-18); eGFR NON AFRICAN AMERICAN 80 mL/min (90-120)
[2020-04-09 12:09] LABS: IMMUNOFIXATION Note: (()); IMMUNOGLOBULIN A 6 mg/dL (61-437); IMMUNOGLOBULIN G 226 mg/dL (603-1613); IMMUNOGLOBULIN M 7 mg/dL (20-172); SPE - A/G RATIO 1.9 (0.7-1.7); SPE - ALBUMIN 3.3 g/dL (2.9-4.4); SPE - ALPHA-1 GLOBULIN 0.2 g/dL (0.0-0.4); SPE - ALPHA-2 GLOBULIN 0.6 g/dL (0.4-1.0); SPE - BETA GLOBULIN 0.7 g/dL (0.7-1.3); SPE - GAMMA GLOBULIN 0.2 g/dL (0.4-1.8); SPE - M-SPIKE 0.1 g/dL (Not Observed)
== END | disposition home or self-care (01) ==
LOC: D.LABREF 10:40
PROVIDERS: ATTEND Internal Medicine Hematology & Oncology
DX: C90.00 Multiple myeloma not having achieved remission (principal)

== ENCOUNTER → 2020-04-16 15:23 | Outpatient (CLI) | payer MEDICARE ==
[2018-08-24 03:35] VITALS: BMI 31.8
[2020-04-16 15:38] LABS: HEMOGLOBIN 8.7 g/dL (13.5-17.5); MCH 35.5 pg (26.0-34.0); MCHC 33.5 g/dL (31.0-37.0); MCV 106.1 fL (80.0-100.0); MEAN PLATELET VOLUME 10.8 fL (7.4-10.4); PLATELET COUNT 73 10x3/uL (130-400); RBC 2.45 10x6/uL (4.20-6.10); RDW 14.1 % (11.5-14.5); WBC 37.7 10x3/uL (4.8-10.8)
[2020-04-16 15:52] LABS: ALBUMIN 2.9 g/dL (3.4-5.0); ANION GAP 15.2 mmol/L (8-16); BILIRUBIN - TOTAL 0.21 mg/dL (0.2-1.3); C-REACTIVE PROTEIN 0.7 mg/dL (0.0-0.9); CALCIUM 8.1 mg/dL (8.5-10.1); CARBON DIOXIDE 23.9 mmol/L (21.0-32.0); CREATININE - SERUM 1.2 mg/dL (0.6-1.3); MAGNESIUM - SERUM 1.6 mg/dL (1.8-2.4); PHOSPHOROUS 3.4 mg/dL (2.5-4.9); POTASSIUM - SERUM 3.1 mmol/L (3.5-5.1)
[2020-04-16 16:40] LABS: EOSINOPHILS 2 % (0-7); LYMPHOCYTES 6 % (15-50); NEUTROPHILS 90 % (40-80); PLATELET ESTIMATE DECREASED
== END | disposition home or self-care (01) ==
LOC: D.LABREF 15:23
PROVIDERS: ATTEND Internal Medicine Hematology & Oncology
DX: C90.00 Multiple myeloma not having achieved remission (principal)

== ENCOUNTER → 2020-04-22 12:16 | Outpatient (CLI) | payer MEDICARE ==
[2018-08-24 03:35] VITALS: BMI 31.8
[2020-04-22 13:05] LABS: BASOPHILS 0.2 % (0-2); EOSINOPHILS 0.2 % (0-7); HEMATOCRIT 28.9 % (42.0-54.0); HEMOGLOBIN 9.3 g/dL (13.5-17.5); IMMATURE GRANULOCYTES 1.2 % (0-5); LYMPHOCYTES 11.7 % (15-50); MCH 34.2 pg (26.0-34.0); MCHC 32.2 g/dL (31.0-37.0); MCV 106.3 fL (80.0-100.0); MEAN PLATELET VOLUME 11.8 fL (7.4-10.4); MONOCYTES 12.6 % (2-11); NEUTROPHILS 74.1 % (40-80); PLATELET COUNT 63 10x3/uL (130-400); RBC 2.72 10x6/uL (4.20-6.10); RDW 14.3 % (11.5-14.5); WBC 8.5 10x3/uL (4.8-10.8)
[2020-04-22 13:38] LABS: ALBUMIN 3.2 g/dL (3.4-5.0); ALKALINE PHOSPHATASE 125 U/L (30-120); ALT (SGPT) 13 U/L (10-68); BILIRUBIN - TOTAL 0.14 mg/dL (0.2-1.3); C-REACTIVE PROTEIN 0.3 mg/dL (0.0-0.9); CALC OSMOLALITY 278 mosm/kg (275-300); CALCIUM 8.4 mg/dL (8.5-10.1); CARBON DIOXIDE 30.3 mmol/L (21.0-32.0); CHLORIDE - SERUM 104 mmol/L (98-107); GLUCOSE 123 mg/dL (74-106); MAGNESIUM - SERUM 1.6 mg/dL (1.8-2.4); PHOSPHOROUS 4.1 mg/dL (2.5-4.9); POTASSIUM - SERUM 3.9 mmol/L (3.5-5.1); PROTEIN - SERUM 5.1 g/dL (6.4-8.2); SODIUM 140 mmol/L (136-145); UREA NITROGEN 9 mg/dL (7-18); eGFR NON AFRICAN AMERICAN 80 mL/min (90-120)
[2020-04-22 14:37] LABS: PLATELET ESTIMATE DECREASED
[2020-04-22 14:50] LABS: ROULEAUX OCC
[2020-04-23 11:09] LABS: SPE - A/G RATIO 1.8 (0.7-1.7); SPE - ALBUMIN 3.2 g/dL (2.9-4.4); SPE - ALPHA-1 GLOBULIN 0.2 g/dL (0.0-0.4); SPE - ALPHA-2 GLOBULIN 0.7 g/dL (0.4-1.0); SPE - BETA GLOBULIN 0.7 g/dL (0.7-1.3); SPE - GAMMA GLOBULIN 0.2 g/dL (0.4-1.8); SPE - M-SPIKE Not Observed g/dL (Not Observed)
[2020-04-24 14:09] LABS: IMMUNOFIXATION Note: (()); IMMUNOGLOBULIN A <5 mg/dL (61-437); IMMUNOGLOBULIN G 202 mg/dL (603-1613); IMMUNOGLOBULIN M 5 mg/dL (20-172)
== END | disposition home or self-care (01) ==
LOC: D.LABREF 12:16
PROVIDERS: ATTEND Internal Medicine Hematology & Oncology
DX: C90.00 Multiple myeloma not having achieved remission (principal)

== ENCOUNTER → 2020-05-06 12:25 | Outpatient (CLI) | payer MEDICARE ==
[2018-08-24 03:35] VITALS: BMI 31.8
[2020-05-06 20:28] LABS: BASOPHILS 0.3 % (0-2); EOSINOPHILS 0.5 % (0-7); HEMOGLOBIN 9.4 g/dL (13.5-17.5); IMMATURE GRANULOCYTES 0.3 % (0-5); LYMPHOCYTES 14.6 % (15-50); MCH 34.1 pg (26.0-34.0); MCHC 31.3 g/dL (31.0-37.0); MCV 108.7 fL (80.0-100.0); MEAN PLATELET VOLUME 11.8 fL (7.4-10.4); MONOCYTES 10.8 % (2-11); NEUTROPHILS 73.5 % (40-80); RBC 2.76 10x6/uL (4.20-6.10); RDW 15.1 % (11.5-14.5); WBC 6.4 10x3/uL (4.8-10.8)
[2020-05-06 20:44] LABS: PLATELET COUNT 42 10x3/uL (130-400)
[2020-05-06 20:49] LABS: ALBUMIN 3.4 g/dL (3.4-5.0); ANION GAP 10.2 mmol/L (8-16); BILIRUBIN - TOTAL 0.33 mg/dL (0.2-1.3); CALCIUM 7.8 mg/dL (8.5-10.1); CARBON DIOXIDE 28.1 mmol/L (21.0-32.0); CREATININE - SERUM 1.1 mg/dL (0.6-1.3); MAGNESIUM - SERUM 1.6 mg/dL (1.8-2.4); PHOSPHOROUS 3.6 mg/dL (2.5-4.9); POTASSIUM - SERUM 3.3 mmol/L (3.5-5.1); PROTEIN - SERUM 5.3 g/dL (6.4-8.2)
[2020-05-06 21:22] LABS: PLATELET ESTIMATE DECREASED
== END | disposition home or self-care (01) ==
LOC: D.LABREF 12:25
PROVIDERS: ATTEND Internal Medicine Hematology & Oncology
DX: C90.00 Multiple myeloma not having achieved remission (principal)

== ENCOUNTER → 2020-05-20 13:11 | Outpatient (CLI) | payer MEDICARE ==
[2018-08-24 03:35] VITALS: BMI 31.8
[2020-05-20 15:31] LABS: BASOPHILS 0.2 % (0-2); EOSINOPHILS 1.1 % (0-7); HEMATOCRIT 32.1 % (42.0-54.0); HEMOGLOBIN 10.1 g/dL (13.5-17.5); IMMATURE GRANULOCYTES 0.9 % (0-5); LYMPHOCYTES 13.8 % (15-50); MCH 33.7 pg (26.0-34.0); MCHC 31.5 g/dL (31.0-37.0); MEAN PLATELET VOLUME 11.6 fL (7.4-10.4); MONOCYTES 13.2 % (2-11); NEUTROPHILS 70.8 % (40-80); RDW 14.7 % (11.5-14.5); WBC 8.8 10x3/uL (4.8-10.8)
[2020-05-20 15:46] LABS: PLATELET COUNT 103 10x3/uL (130-400)
[2020-05-20 15:54] LABS: ALBUMIN 3.2 g/dL (3.4-5.0); ALKALINE PHOSPHATASE 138 U/L (30-120); ALT (SGPT) 9 U/L (10-68); BILIRUBIN - TOTAL 0.16 mg/dL (0.2-1.3); CALC OSMOLALITY 278 mosm/kg (275-300); CALCIUM 8.1 mg/dL (8.5-10.1); CARBON DIOXIDE 28.6 mmol/L (21.0-32.0); CHLORIDE - SERUM 105 mmol/L (98-107); GLUCOSE 83 mg/dL (74-106); MAGNESIUM - SERUM 1.7 mg/dL (1.8-2.4); PHOSPHOROUS 3.8 mg/dL (2.5-4.9); POTASSIUM - SERUM 3.4 mmol/L (3.5-5.1); PROTEIN - SERUM 5.1 g/dL (6.4-8.2); SODIUM 140 mmol/L (136-145); UREA NITROGEN 14 mg/dL (7-18); eGFR NON AFRICAN AMERICAN 80 mL/min (90-120)
== END | disposition home or self-care (01) ==
LOC: D.LABREF 13:11
PROVIDERS: ATTEND Internal Medicine Hematology & Oncology
DX: C90.00 Multiple myeloma not having achieved remission (principal)

== ENCOUNTER → 2020-05-27 12:43 | Outpatient (CLI) | payer MEDICARE ==
[2018-08-24 03:35] VITALS: BMI 31.8
[2020-05-27 16:04] LABS: BASOPHILS 0.4 % (0-2); EOSINOPHILS 1.4 % (0-7); HEMATOCRIT 33.5 % (42.0-54.0); HEMOGLOBIN 10.7 g/dL (13.5-17.5); IMMATURE GRANULOCYTES 0.4 % (0-5); MCHC 31.9 g/dL (31.0-37.0); MCV 106.3 fL (80.0-100.0); MEAN PLATELET VOLUME 10.7 fL (7.4-10.4); NEUTROPHILS 64.8 % (40-80); RBC 3.15 10x6/uL (4.20-6.10); RDW 14.6 % (11.5-14.5); WBC 7.2 10x3/uL (4.8-10.8)
[2020-05-27 16:09] LABS: PLATELET COUNT 181 10x3/uL (130-400)
[2020-05-27 16:13] LABS: ALBUMIN 3.2 g/dL (3.4-5.0); ANION GAP 10.3 mmol/L (8-16); BILIRUBIN - TOTAL 0.26 mg/dL (0.2-1.3); C-REACTIVE PROTEIN 0.9 mg/dL (0.0-0.9); CALCIUM 8.9 mg/dL (8.5-10.1); CARBON DIOXIDE 28.5 mmol/L (21.0-32.0); CREATININE - SERUM 1.1 mg/dL (0.6-1.3); MAGNESIUM - SERUM 1.8 mg/dL (1.8-2.4); PHOSPHOROUS 3.6 mg/dL (2.5-4.9); POTASSIUM - SERUM 3.8 mmol/L (3.5-5.1); PROTEIN - SERUM 5.7 g/dL (6.4-8.2); URIC ACID 4.7 mg/dL (2.6-7.2)
[2020-05-28 15:11] LABS: IMMUNOGLOBULIN A 5 mg/dL (61-437); IMMUNOGLOBULIN G 189 mg/dL (603-1613); IMMUNOGLOBULIN M 9 mg/dL (20-172)
[2020-05-28 19:08] LABS: SPE - A/G RATIO 1.9 (0.7-1.7); SPE - ALBUMIN 3.4 g/dL (2.9-4.4); SPE - ALPHA-1 GLOBULIN 0.2 g/dL (0.0-0.4); SPE - ALPHA-2 GLOBULIN 0.8 g/dL (0.4-1.0); SPE - BETA GLOBULIN 0.6 g/dL (0.7-1.3); SPE - GAMMA GLOBULIN 0.2 g/dL (0.4-1.8); SPE - M-SPIKE Not Observed g/dL (Not Observed); SPE - TOTAL PROTEIN 5.2 g/dL (6.0-8.5)
== END | disposition home or self-care (01) ==
LOC: D.LABREF 12:43
PROVIDERS: ATTEND Internal Medicine Hematology & Oncology
DX: C90.00 Multiple myeloma not having achieved remission (principal)

== ENCOUNTER → 2020-06-03 10:30 | Outpatient (CLI) | payer MEDICARE ==
[2018-08-24 03:35] VITALS: BMI 31.8
[2020-06-03 18:20] LABS: HEMATOCRIT 34.3 % (42.0-54.0); HEMOGLOBIN 11.1 g/dL (13.5-17.5); LYMPHOCYTES 21.1 % (15-50); MCH 34.4 pg (26.0-34.0); MCHC 32.4 g/dL (31.0-37.0); MCV 106.2 fL (80.0-100.0); MEAN PLATELET VOLUME 9.8 fL (7.4-10.4); NEUTROPHILS 63.4 % (40-80); RBC 3.23 10x6/uL (4.20-6.10); RDW 14.7 % (11.5-14.5); WBC 8.5 10x3/uL (4.8-10.8)
[2020-06-03 18:30] LABS: PLATELET COUNT 218 10x3/uL (130-400)
[2020-06-03 18:40] LABS: ALBUMIN 3.3 g/dL (3.4-5.0); ALKALINE PHOSPHATASE 98 U/L (30-120); ALT (SGPT) 12 U/L (10-68); C-REACTIVE PROTEIN < 0.2 mg/dL (0.0-0.9); CALC OSMOLALITY 277 mosm/kg (275-300); CALCIUM 8.4 mg/dL (8.5-10.1); CARBON DIOXIDE 29.6 mmol/L (21.0-32.0); CHLORIDE - SERUM 103 mmol/L (98-107); GLUCOSE 107 mg/dL (74-106); MAGNESIUM - SERUM 1.8 mg/dL (1.8-2.4); PHOSPHOROUS 4.3 mg/dL (2.5-4.9); POTASSIUM - SERUM 3.8 mmol/L (3.5-5.1); PROTEIN - SERUM 5.4 g/dL (6.4-8.2); SODIUM 139 mmol/L (136-145); UREA NITROGEN 13 mg/dL (7-18); URIC ACID 4.1 mg/dL (2.6-7.2); eGFR NON AFRICAN AMERICAN 80 mL/min (90-120)
== END | disposition home or self-care (01) ==
LOC: D.LABREF 10:30
PROVIDERS: ATTEND Internal Medicine Hematology & Oncology
DX: C90.02 Multiple myeloma in relapse (principal)

== ENCOUNTER → 2020-06-10 14:45 | Outpatient (CLI) | payer MEDICARE ==
[2018-08-24 03:35] VITALS: BMI 31.8
[2020-06-10 15:10] LABS: BASOPHILS 0.5 % (0-2); EOSINOPHILS 5.3 % (0-7); HEMATOCRIT 32.1 % (42.0-54.0); HEMOGLOBIN 10.2 g/dL (13.5-17.5); IMMATURE GRANULOCYTES 0.2 % (0-5); LYMPHOCYTES 18.2 % (15-50); MCH 33.3 pg (26.0-34.0); MCHC 31.8 g/dL (31.0-37.0); MCV 104.9 fL (80.0-100.0); MONOCYTES 16.8 % (2-11); PLATELET COUNT 221 10x3/uL (130-400); RBC 3.06 10x6/uL (4.20-6.10); RDW 13.9 % (11.5-14.5); WBC 5.7 10x3/uL (4.8-10.8)
[2020-06-10 15:33] LABS: ALKALINE PHOSPHATASE 90 U/L (30-120); ALT (SGPT) 10 U/L (10-68); BILIRUBIN - TOTAL 0.23 mg/dL (0.2-1.3); CALC OSMOLALITY 281 mosm/kg (275-300); CALCIUM 7.9 mg/dL (8.5-10.1); CHLORIDE - SERUM 105 mmol/L (98-107); MAGNESIUM - SERUM 1.6 mg/dL (1.8-2.4); PHOSPHOROUS 4.1 mg/dL (2.5-4.9); POTASSIUM - SERUM 3.8 mmol/L (3.5-5.1); PROTEIN - SERUM 4.9 g/dL (6.4-8.2); SODIUM 139 mmol/L (136-145); UREA NITROGEN 14 mg/dL (7-18); URIC ACID 5.2 mg/dL (2.6-7.2); eGFR NON AFRICAN AMERICAN 80 mL/min (90-120)
[2020-06-10 15:34] LABS: GLUCOSE 156 mg/dL (74-106)
== END | disposition home or self-care (01) ==
LOC: D.LABREF 14:45
PROVIDERS: ATTEND Internal Medicine Hematology & Oncology
DX: C90.02 Multiple myeloma in relapse (principal)

== ENCOUNTER → 2020-06-17 14:18 | Outpatient (CLI) | payer MEDICARE ==
[2018-08-24 03:35] VITALS: BMI 31.8
[2020-06-17 14:46] LABS: ALBUMIN 3.2 g/dL (3.4-5.0); ANION GAP 10.3 mmol/L (8-16); BILIRUBIN - TOTAL 0.25 mg/dL (0.2-1.3); C-REACTIVE PROTEIN 0.2 mg/dL (0.0-0.9); CALCIUM 8.7 mg/dL (8.5-10.1); CARBON DIOXIDE 28.7 mmol/L (21.0-32.0); CREATININE - SERUM 1.1 mg/dL (0.6-1.3); MAGNESIUM - SERUM 1.6 mg/dL (1.8-2.4); PHOSPHOROUS 3.7 mg/dL (2.5-4.9); PROTEIN - SERUM 5.5 g/dL (6.4-8.2); URIC ACID 4.8 mg/dL (2.6-7.2)
[2020-06-17 14:48] LABS: BASOPHILS 0.6 % (0-2); EOSINOPHILS 3.7 % (0-7); HEMATOCRIT 32.7 % (42.0-54.0); HEMOGLOBIN 10.6 g/dL (13.5-17.5); IMMATURE GRANULOCYTES 0.1 % (0-5); LYMPHOCYTES 20.7 % (15-50); MCH 33.4 pg (26.0-34.0); MCHC 32.4 g/dL (31.0-37.0); MCV 103.2 fL (80.0-100.0); MEAN PLATELET VOLUME 10.1 fL (7.4-10.4); MONOCYTES 12.4 % (2-11); NEUTROPHILS 62.5 % (40-80); PLATELET COUNT 220 10x3/uL (130-400); RBC 3.17 10x6/uL (4.20-6.10); RDW 13.3 % (11.5-14.5); WBC 6.8 10x3/uL (4.8-10.8)
== END | disposition home or self-care (01) ==
LOC: D.LABREF 14:18
PROVIDERS: ATTEND Internal Medicine Hematology & Oncology
DX: C90.02 Multiple myeloma in relapse (principal)

== ENCOUNTER → 2020-06-24 15:35 | Outpatient (CLI) | payer MEDICARE ==
[2018-08-24 03:35] VITALS: BMI 31.8
[2020-06-24 16:22] LABS: BASOPHILS 0.7 % (0-2); EOSINOPHILS 4.2 % (0-7); HEMATOCRIT 32.5 % (42.0-54.0); HEMOGLOBIN 10.4 g/dL (13.5-17.5); IMMATURE GRANULOCYTES 0.3 % (0-5); LYMPHOCYTES 20.8 % (15-50); MCH 32.5 pg (26.0-34.0); MCV 101.6 fL (80.0-100.0); MEAN PLATELET VOLUME 10.2 fL (7.4-10.4); MONOCYTES 13.5 % (2-11); NEUTROPHILS 60.5 % (40-80); PLATELET COUNT 192 10x3/uL (130-400); WBC 5.8 10x3/uL (4.8-10.8)
[2020-06-24 16:37] LABS: ALBUMIN 3.1 g/dL (3.4-5.0); ANION GAP 11.1 mmol/L (8-16); BILIRUBIN - TOTAL 0.31 mg/dL (0.2-1.3); C-REACTIVE PROTEIN 0.9 mg/dL (0.0-0.9); CARBON DIOXIDE 28.5 mmol/L (21.0-32.0); CREATININE - SERUM 1.3 mg/dL (0.6-1.3); MAGNESIUM - SERUM 1.6 mg/dL (1.8-2.4); PHOSPHOROUS 4.1 mg/dL (2.5-4.9); POTASSIUM - SERUM 3.6 mmol/L (3.5-5.1); PROTEIN - SERUM 5.5 g/dL (6.4-8.2); URIC ACID 5.9 mg/dL (2.6-7.2)
[2020-06-25 15:11] LABS: IMMUNOFIXATION Note: (()); IMMUNOGLOBULIN A 8 mg/dL (61-437); IMMUNOGLOBULIN G 188 mg/dL (603-1613); IMMUNOGLOBULIN M 12 mg/dL (20-172)
[2020-06-26 03:08] LABS: SPE - A/G RATIO 1.7 (0.7-1.7); SPE - ALBUMIN 3.2 g/dL (2.9-4.4); SPE - ALPHA-1 GLOBULIN 0.2 g/dL (0.0-0.4); SPE - ALPHA-2 GLOBULIN 0.7 g/dL (0.4-1.0); SPE - BETA GLOBULIN 0.8 g/dL (0.7-1.3); SPE - GAMMA GLOBULIN 0.2 g/dL (0.4-1.8); SPE - M-SPIKE Not Observed g/dL (Not Observed); SPE - TOTAL PROTEIN 5.1 g/dL (6.0-8.5)
== END | disposition home or self-care (01) ==
LOC: D.LABREF 15:35
PROVIDERS: ATTEND Internal Medicine Hematology & Oncology
DX: C90.02 Multiple myeloma in relapse (principal)

== ENCOUNTER → 2020-07-01 11:57 | Outpatient (CLI) | payer MEDICARE ==
[2018-08-24 03:35] VITALS: BMI 31.8
[2020-07-01 13:17] LABS: BASOPHILS 0.3 % (0-2); EOSINOPHILS 3.2 % (0-7); HEMATOCRIT 32.7 % (42.0-54.0); HEMOGLOBIN 10.5 g/dL (13.5-17.5); IMMATURE GRANULOCYTES 0.1 % (0-5); LYMPHOCYTES 15.2 % (15-50); MCH 32.4 pg (26.0-34.0); MCHC 32.1 g/dL (31.0-37.0); MCV 100.9 fL (80.0-100.0); MEAN PLATELET VOLUME 10.5 fL (7.4-10.4); MONOCYTES 13.7 % (2-11); NEUTROPHILS 67.5 % (40-80); PLATELET COUNT 191 10x3/uL (130-400); RBC 3.24 10x6/uL (4.20-6.10); WBC 7.1 10x3/uL (4.8-10.8)
[2020-07-01 13:30] LABS: ANION GAP 8.8 mmol/L (8-16); BILIRUBIN - TOTAL 0.16 mg/dL (0.2-1.3); C-REACTIVE PROTEIN 0.6 mg/dL (0.0-0.9); CALCIUM 8.3 mg/dL (8.5-10.1); CARBON DIOXIDE 28.4 mmol/L (21.0-32.0); CREATININE - SERUM 1.1 mg/dL (0.6-1.3); MAGNESIUM - SERUM 1.6 mg/dL (1.8-2.4); PHOSPHOROUS 3.6 mg/dL (2.5-4.9); POTASSIUM - SERUM 3.2 mmol/L (3.5-5.1); PROTEIN - SERUM 5.6 g/dL (6.4-8.2); URIC ACID 4.9 mg/dL (2.6-7.2)
== END | disposition home or self-care (01) ==
LOC: D.LABREF 11:57
PROVIDERS: ATTEND Internal Medicine Hematology & Oncology
DX: C90.02 Multiple myeloma in relapse (principal)

== ENCOUNTER → 2020-07-08 14:58 | Outpatient (CLI) | payer MEDICARE ==
[2018-08-24 03:35] VITALS: BMI 31.8
[2020-07-08 15:31] LABS: BASOPHILS 0.4 % (0-2); HEMATOCRIT 36.2 % (42.0-54.0); HEMOGLOBIN 11.5 g/dL (13.5-17.5); IMMATURE GRANULOCYTES 0.3 % (0-5); LYMPHOCYTES 21.2 % (15-50); MCH 31.8 pg (26.0-34.0); MCHC 31.8 g/dL (31.0-37.0); MEAN PLATELET VOLUME 10.3 fL (7.4-10.4); NEUTROPHILS 63.1 % (40-80); PLATELET COUNT 190 10x3/uL (130-400); RBC 3.62 10x6/uL (4.20-6.10); RDW 12.9 % (11.5-14.5); WBC 6.9 10x3/uL (4.8-10.8)
[2020-07-08 16:09] LABS: ALBUMIN 3.3 g/dL (3.4-5.0); ANION GAP 13.5 mmol/L (8-16); BILIRUBIN - TOTAL 0.28 mg/dL (0.2-1.3); C-REACTIVE PROTEIN 0.6 mg/dL (0.0-0.9); CALCIUM 8.9 mg/dL (8.5-10.1); CARBON DIOXIDE 26.7 mmol/L (21.0-32.0); CREATININE - SERUM 1.2 mg/dL (0.6-1.3); MAGNESIUM - SERUM 1.8 mg/dL (1.8-2.4); PHOSPHOROUS 4.1 mg/dL (2.5-4.9); POTASSIUM - SERUM 4.2 mmol/L (3.5-5.1); PROTEIN - SERUM 6.2 g/dL (6.4-8.2)
== END | disposition home or self-care (01) ==
LOC: D.LABREF 14:58
PROVIDERS: ATTEND Internal Medicine Hematology & Oncology
DX: C90.02 Multiple myeloma in relapse (principal)

== ENCOUNTER → 2020-07-15 15:20 | Outpatient (CLI) | payer MEDICARE ==
[2018-08-24 03:35] VITALS: BMI 31.8
[2020-07-15 17:26] LABS: BASOPHILS 0.1 % (0-2); HEMATOCRIT 35.2 % (42.0-54.0); HEMOGLOBIN 11.3 g/dL (13.5-17.5); IMMATURE GRANULOCYTES 0.1 % (0-5); LYMPHOCYTES 10.4 % (15-50); MCH 31.9 pg (26.0-34.0); MCHC 32.1 g/dL (31.0-37.0); MCV 99.4 fL (80.0-100.0); MEAN PLATELET VOLUME 10.2 fL (7.4-10.4); MONOCYTES 10.2 % (2-11); NEUTROPHILS 78.2 % (40-80); PLATELET COUNT 169 10x3/uL (130-400); RBC 3.54 10x6/uL (4.20-6.10); WBC 10.5 10x3/uL (4.8-10.8)
[2020-07-15 17:46] LABS: ALBUMIN 3.3 g/dL (3.4-5.0); BILIRUBIN - TOTAL 0.25 mg/dL (0.2-1.3); C-REACTIVE PROTEIN 1.2 mg/dL (0.0-0.9); CALCIUM 8.5 mg/dL (8.5-10.1); CREATININE - SERUM 1.4 mg/dL (0.6-1.3); MAGNESIUM - SERUM 1.6 mg/dL (1.8-2.4); PHOSPHOROUS 3.9 mg/dL (2.5-4.9); PROTEIN - SERUM 5.9 g/dL (6.4-8.2); URIC ACID 4.7 mg/dL (2.6-7.2)
== END | disposition home or self-care (01) ==
LOC: D.LABREF 15:20
PROVIDERS: ATTEND Internal Medicine Hematology & Oncology
DX: C90.02 Multiple myeloma in relapse (principal)

== ENCOUNTER → 2020-07-22 15:19 | Outpatient (CLI) | payer MEDICARE ==
[2018-08-24 03:35] VITALS: BMI 31.8
[2020-07-22 16:56] LABS: BASOPHILS 0.1 % (0-2); EOSINOPHILS 2.6 % (0-7); HEMATOCRIT 34.6 % (42.0-54.0); IMMATURE GRANULOCYTES 0.3 % (0-5); LYMPHOCYTES 18.1 % (15-50); MCHC 31.8 g/dL (31.0-37.0); MCV 97.5 fL (80.0-100.0); MONOCYTES 12.9 % (2-11); PLATELET COUNT 176 10x3/uL (130-400); RBC 3.55 10x6/uL (4.20-6.10); RDW 12.8 % (11.5-14.5); WBC 6.8 10x3/uL (4.8-10.8)
[2020-07-22 17:47] LABS: ALBUMIN 3.3 g/dL (3.4-5.0); ANION GAP 12.1 mmol/L (8-16); BILIRUBIN - TOTAL 0.23 mg/dL (0.2-1.3); C-REACTIVE PROTEIN 2.3 mg/dL (0.0-0.9); CALCIUM 8.6 mg/dL (8.5-10.1); CARBON DIOXIDE 27.5 mmol/L (21.0-32.0); CREATININE - SERUM 1.4 mg/dL (0.6-1.3); MAGNESIUM - SERUM 1.7 mg/dL (1.8-2.4); PHOSPHOROUS 3.4 mg/dL (2.5-4.9); POTASSIUM - SERUM 3.6 mmol/L (3.5-5.1)
== END | disposition home or self-care (01) ==
LOC: D.LABREF 15:19
PROVIDERS: ATTEND Internal Medicine Hematology & Oncology
DX: C90.00 Multiple myeloma not having achieved remission (principal)

== ENCOUNTER → 2020-07-30 16:24 | Outpatient (CLI) | payer MEDICARE ==
[2018-08-24 03:35] VITALS: BMI 31.8
[2020-07-30 17:46] LABS: BASOPHILS 0.1 % (0-2); EOSINOPHILS 0.6 % (0-7); HEMATOCRIT 33.8 % (42.0-54.0); HEMOGLOBIN 11.3 g/dL (13.5-17.5); IMMATURE GRANULOCYTES 0.1 % (0-5); LYMPHOCYTES 11.4 % (15-50); MCH 31.6 pg (26.0-34.0); MCHC 33.4 g/dL (31.0-37.0); MCV 94.4 fL (80.0-100.0); MEAN PLATELET VOLUME 10.3 fL (7.4-10.4); MONOCYTES 9.8 % (2-11); PLATELET COUNT 198 10x3/uL (130-400); RBC 3.58 10x6/uL (4.20-6.10)
[2020-07-30 18:10] LABS: ALBUMIN 3.2 g/dL (3.4-5.0); ANION GAP 11.9 mmol/L (8-16); BILIRUBIN - TOTAL 0.23 mg/dL (0.2-1.3); C-REACTIVE PROTEIN 0.5 mg/dL (0.0-0.9); CALCIUM 8.3 mg/dL (8.5-10.1); CARBON DIOXIDE 25.1 mmol/L (21.0-32.0); CREATININE - SERUM 1.2 mg/dL (0.6-1.3); MAGNESIUM - SERUM 1.8 mg/dL (1.8-2.4); PHOSPHOROUS 3.6 mg/dL (2.5-4.9); PROTEIN - SERUM 5.6 g/dL (6.4-8.2)
== END | disposition home or self-care (01) ==
LOC: D.LABREF 16:24
PROVIDERS: ATTEND Internal Medicine Hematology & Oncology
DX: C90.00 Multiple myeloma not having achieved remission (principal)

== ENCOUNTER → 2020-08-12 17:49 | Outpatient (CLI) | payer MEDICARE ==
[2018-08-24 03:35] VITALS: BMI 31.8
[2020-08-12 21:59] LABS: BASOPHILS 0.2 % (0-2); EOSINOPHILS 0.5 % (0-7); HEMATOCRIT 32.2 % (42.0-54.0); HEMOGLOBIN 10.5 g/dL (13.5-17.5); IMMATURE GRANULOCYTES 0.5 % (0-5); LYMPHOCYTES 6.5 % (15-50); MCHC 32.6 g/dL (31.0-37.0); MEAN PLATELET VOLUME 10.2 fL (7.4-10.4); MONOCYTES 10.8 % (2-11); NEUTROPHILS 81.5 % (40-80); RBC 3.39 10x6/uL (4.20-6.10); RDW 13.4 % (11.5-14.5); WBC 6.3 10x3/uL (4.8-10.8)
[2020-08-12 22:15] LABS: ALBUMIN 2.8 g/dL (3.4-5.0); ANION GAP 11.1 mmol/L (8-16); BILIRUBIN - TOTAL 0.17 mg/dL (0.2-1.3); C-REACTIVE PROTEIN 0.3 mg/dL (0.0-0.9); CALCIUM 8.2 mg/dL (8.5-10.1); CARBON DIOXIDE 25.6 mmol/L (21.0-32.0); CREATININE - SERUM 1.1 mg/dL (0.6-1.3); MAGNESIUM - SERUM 1.6 mg/dL (1.8-2.4); PHOSPHOROUS 2.6 mg/dL (2.5-4.9); POTASSIUM - SERUM 3.7 mmol/L (3.5-5.1); PROTEIN - SERUM 5.2 g/dL (6.4-8.2)
[2020-08-12 22:42] LABS: PLATELET COUNT 108 10x3/uL (130-400)
== END | disposition home or self-care (01) ==
LOC: D.LAB 17:49
PROVIDERS: ATTEND Internal Medicine Hematology & Oncology
DX: C90.02 Multiple myeloma in relapse (principal)

== ENCOUNTER → 2020-08-26 19:26 | Outpatient (CLI) | payer MEDICARE ==
[2018-08-24 03:35] VITALS: BMI 31.8
[2020-08-26 22:10] LABS: ALBUMIN 2.9 g/dL (3.4-5.0); ANION GAP 13.9 mmol/L (8-16); BILIRUBIN - TOTAL 0.21 mg/dL (0.2-1.3); C-REACTIVE PROTEIN 0.9 mg/dL (0.0-0.9); CALCIUM 8.5 mg/dL (8.5-10.1); CARBON DIOXIDE 24.9 mmol/L (21.0-32.0); CREATININE - SERUM 1.2 mg/dL (0.6-1.3); MAGNESIUM - SERUM 1.6 mg/dL (1.8-2.4); PHOSPHOROUS 3.4 mg/dL (2.5-4.9); POTASSIUM - SERUM 3.8 mmol/L (3.5-5.1); PROTEIN - SERUM 5.5 g/dL (6.4-8.2); URIC ACID 4.8 mg/dL (2.6-7.2)
[2020-08-28 13:12] LABS: IMMUNOGLOBULIN A 6 mg/dL (61-437); IMMUNOGLOBULIN G 170 mg/dL (603-1613); IMMUNOGLOBULIN M 11 mg/dL (20-172); SPE - A/G RATIO 1.5 (0.7-1.7); SPE - ALBUMIN 2.9 g/dL (2.9-4.4); SPE - ALPHA-1 GLOBULIN 0.3 g/dL (0.0-0.4); SPE - ALPHA-2 GLOBULIN 0.9 g/dL (0.4-1.0); SPE - BETA GLOBULIN 0.7 g/dL (0.7-1.3); SPE - GAMMA GLOBULIN 0.2 g/dL (0.4-1.8); SPE - M-SPIKE Not Observed g/dL (Not Observed); SPE - TOTAL PROTEIN 4.9 g/dL (6.0-8.5)
[2020-08-29 15:12] LABS: BETA-2 MICROGLOBULIN 3.1 mg/L (0.6-2.4)
== END | disposition home or self-care (01) ==
LOC: D.LABREF 19:26
PROVIDERS: ATTEND Internal Medicine Hematology & Oncology
DX: C90.02 Multiple myeloma in relapse (principal); E11.22 Type 2 diabetes mellitus with diabetic chronic kidney disease; I12.9 Hypertensive chronic kidney disease with stage 1 through stage 4 chronic kidney disease, or unspecified chronic kidney disease

== ENCOUNTER → 2020-09-02 20:31 | Outpatient (CLI) | payer MEDICARE ==
[2018-08-24 03:35] VITALS: BMI 31.8
[2020-09-02 22:01] LABS: BASOPHILS 0.1 % (0-2); EOSINOPHILS 0.2 % (0-7); HEMATOCRIT 33.4 % (42.0-54.0); HEMOGLOBIN 10.9 g/dL (13.5-17.5); LYMPHOCYTES 9.1 % (15-50); MCH 31.1 pg (26.0-34.0); MCHC 32.6 g/dL (31.0-37.0); MCV 95.2 fL (80.0-100.0); MEAN PLATELET VOLUME 11.4 fL (7.4-10.4); MONOCYTES 8.5 % (2-11); NEUTROPHILS 81.1 % (40-80); RBC 3.51 10x6/uL (4.20-6.10); RDW 15.6 % (11.5-14.5); WBC 12.5 10x3/uL (4.8-10.8)
[2020-09-02 22:06] LABS: PLATELET COUNT 82 10x3/uL (130-400)
[2020-09-02 22:20] LABS: ALBUMIN 3.2 g/dL (3.4-5.0); ALKALINE PHOSPHATASE 128 U/L (30-120); ALT (SGPT) 11 U/L (10-68); C-REACTIVE PROTEIN 2.2 mg/dL (0.0-0.9); CALCIUM 8.2 mg/dL (8.5-10.1); CARBON DIOXIDE 26.3 mmol/L (21.0-32.0); CHLORIDE - SERUM 105 mmol/L (98-107); MAGNESIUM - SERUM 1.7 mg/dL (1.8-2.4); POTASSIUM - SERUM 3.4 mmol/L (3.5-5.1); PROTEIN - SERUM 5.9 g/dL (6.4-8.2); SODIUM 140 mmol/L (136-145); UREA NITROGEN 12 mg/dL (7-18); URIC ACID 5.6 mg/dL (2.6-7.2); eGFR NON AFRICAN AMERICAN 80 mL/min (90-120)
[2020-09-02 22:21] LABS: BILIRUBIN - TOTAL 0.07 mg/dL (0.2-1.3); CALC OSMOLALITY 277 mosm/kg (275-300); GLUCOSE 84 mg/dL (74-106)
[2020-09-02 22:40] LABS: PLATELET ESTIMATE DECREASED
== END | disposition home or self-care (01) ==
LOC: D.LABREF 20:31
DX: C90.02 Multiple myeloma in relapse (principal); E11.22 Type 2 diabetes mellitus with diabetic chronic kidney disease; I12.9 Hypertensive chronic kidney disease with stage 1 through stage 4 chronic kidney disease, or unspecified chronic kidney disease

== ENCOUNTER → 2020-09-09 15:38 | Outpatient (CLI) | payer MEDICARE ==
[2018-08-24 03:35] VITALS: BMI 31.8
[2020-09-09 18:07] LABS: HEMATOCRIT 30.3 % (42.0-54.0); MCH 31.3 pg (26.0-34.0); MEAN PLATELET VOLUME 10.8 fL (7.4-10.4); PLATELET COUNT 121 10x3/uL (130-400); RBC 3.19 10x6/uL (4.20-6.10); RDW 15.8 % (11.5-14.5); WBC 43.3 10x3/uL (4.8-10.8)
[2020-09-09 18:19] LABS: ANION GAP 14.6 mmol/L (8-16); BILIRUBIN - TOTAL 0.19 mg/dL (0.2-1.3); C-REACTIVE PROTEIN 0.6 mg/dL (0.0-0.9); CALCIUM 8.7 mg/dL (8.5-10.1); CARBON DIOXIDE 23.9 mmol/L (21.0-32.0); CREATININE - SERUM 1.1 mg/dL (0.6-1.3); MAGNESIUM - SERUM 1.9 mg/dL (1.8-2.4); PHOSPHOROUS 3.6 mg/dL (2.5-4.9); POTASSIUM - SERUM 3.5 mmol/L (3.5-5.1); PROTEIN - SERUM 5.6 g/dL (6.4-8.2); URIC ACID 4.8 mg/dL (2.6-7.2)
[2020-09-09 18:25] LABS: LYMPHOCYTES 3 % (15-50); NEUTROPHILS 96 % (40-80); PLATELET ESTIMATE NORMAL
== END | disposition home or self-care (01) ==
LOC: D.LABREF 15:38
PROVIDERS: ATTEND Internal Medicine Hematology & Oncology
DX: C90.02 Multiple myeloma in relapse (principal)